=== PATIENT | female | born 1960 | race Caucasian/White ===

== ENCOUNTER 2018-02-09 12:59 | Inpatient (IN) ==
[2018-02-09 13:31] LABS: Bilirubin,Urine Negative (Negative); Blood,Urine Negative (Negative); Color,Urine Yellow (Yellow); Glucose,Urine (UA) Normal (Normal); Ketones,Urine Negative (Negative); Leukocyte Esterase,Urine Small (Negative); Nitrite,Urine Negative (Negative); Protein,Urine 30 mg/dL (Neg-Trace); Specific Gravity,Urine 1.021 (1.010-1.025); Urobilinogen,Urine Normal (Normal)
[2018-02-09 13:36] LABS: Bacteria,Urine Moderate per hpf (None-Few); Hyaline Casts,Urine None Seen per lpf (None-Few); RBC,Urine 0-3 per hpf (0-3); Squamous Epithelial Cell,Urine Many per lpf (None-Few)
[2018-02-09 13:37] LABS: Clarity,Urine Clear (Clear)
[2018-02-09 13:40] LABS: Basophils # 0.1 K/mcL (0.0-0.2); Basophils % 0.8 %; Eosinophils # 0.1 K/mcL (0.0-0.6); Eosinophils % 1.9 %; Hematocrit 46.2 % (35.3-44.9); Hemoglobin 15.4 g/dL (11.5-15.4); Immature Granulocytes % 0.5 % (0-4); Lymphocytes # 2.4 K/mcL (0.6-4.6); Lymphocytes % 33.1 %; Mean Corpuscular HGB Conc 33.3 g/dL (31.6-35.5); Mean Corpuscular Volume 93.1 fL (83.0-100.0); Monocytes # 0.5 K/mcL (0.0-1.3); Monocytes % 6.8 %; Neutrophils # 4.2 K/mcL (1.6-8.9); Platelet Count 337 K/mcL (140-400); Red Blood Count 4.96 M/mcL (3.82-4.97); Red Cell Distribution Width 14.7 % (11.5-14.5); Segmented Neutrophils % 56.9 %
[2018-02-09 13:54] LABS: Amphetamine Screen,Urine Negative ng/mL (Cutoff=1000); Barbiturate Screen,Urine Negative ng/mL (Cutoff=200); Benzodiazepines Screen,Urine Negative ng/mL (Cutoff=200); Cannabinoid Screen,Urine Negative ng/mL (Cutoff = 50); Cocaine Screen,Urine Negative ng/mL (Cutoff= 300); Opiate Screen,Urine Negative ng/mL (Cutoff=300); Phencyclidine Screen,Urine Negative ng/mL (Cutoff=25)
[2018-02-09 14:06] LABS: Acetaminophen < 10 mcg/mL (10-20); BUN/Creatinine Ratio 19 (6-26); Blood Urea Nitrogen 14 mg/dL (6-20); Calcium 9.2 mg/dL (8.6-10.3); Carbon Dioxide 24 mEq/L (23-29); Chloride 103 mEq/L (98-107); Ethanol 327 mg/dL (Less than 10); Glucose 101 mg/dL (70-105); Osmolality,Calculated 293 (280-300); Potassium 3.8 mEq/L (3.5-5.1); Salicylate < 2.5 mg/dL (15.0-30.0); Sodium 141 mEq/L (136-145); eGFR For African Americans > 60 (> 60); eGFR For Non-African Americans > 60 (> 60)
--- NOTE | 2018-02-09 14:15 | Emergency Department Note ---
Disposition Clinical Impression: Suicidal ideation Alcohol intoxication Qualifiers: Complication of substance-induced condition: with unspecified complication Qualified Code(s): F10.929 - Alcohol use, unspecified with intoxication, unspecified Disposition: Admitted As Inpatient Referrals: NONE,PCP [Primary Care Provider] - General Adult HPI - General Chief complaint: ED Psychiatric Symptoms Stated complaint: SI Time Seen by Provider: 02/09/18 13:09 Source: EMS Limitations: no limitations - History of Present Illness HPI Narrative: Ms. Linton is a very pleasant 57-year-old female with a past history of depression, anxiety and alcohol abuse who presents to the [facility] emergency department with a chief complaint of intoxication and suicidal ideations. Her engine testing supervisor reported her abuse this morning after she left a voicemail at [phone] this morning stating that she "did not care anymore and was ready for Jarett ". Patient has a history of chronic alcohol abuse which she drinks 0.5 pint of gin daily. She reports that her father in October and she has been progressively depressed since then. Her psychiatric history involves admission to a psychiatric hospital in [place] roughly 3 years ago. Her relationship with her engine testing supervisor started 1.5 years ago after she drove intoxicated to her engine testing supervisor's house and attempted to leave and was subsequently arrested with a DUI. She goes on to state that she used to use male and prescriptions but had a recent switch and has been out of her medications for roughly 3 weeks. She denies any suicidal ideations this afternoon and did not state a plan. She has not had a firearm at her house. " I just want to go home ". No other complaints at this time. Pain Scale: 0 - Related Data Home Medications Medication Instructions Recorded Confirmed Atomoxetine [Strattera] 40 mg PO DAILY 02/09/18 02/09/18 BuPROPion XL (24 HR) [Wellbutrin 150 mg PO DAILY 02/09/18 02/09/18 XL] FLUoxetine HCl [Prozac] 40 mg PO DAILY 02/09/18 02/09/18 Folic Acid 1 mg PO DAILY 02/09/18 02/09/18 Lisinopril [Zestril] 5 mg PO DAILY 02/09/18 02/09/18 Meloxicam [Mobic] 7.5 mg PO BID PRN 02/09/18 02/09/18 Methotrexate [Otrexup] 15 mg PO QWEEK 02/09/18 02/09/18 Naltrexone HCl 50 mg PO DAILY 02/09/18 02/09/18 Pantoprazole Sodium [Protonix] 40 mg PO DAILY 02/09/18 02/09/18 Quetiapine Fumarate [Seroquel] 200 mg PO BID 02/09/18 02/09/18 Trazodone HCl 150 mg PO HS PRN 02/09/18 02/09/18 hydrOXYzine pamoate [HydrOXYzine 25 - 50 mg PO BID PRN 02/09/18 02/09/18 Pamoate] Allergies Allergy/AdvReac Type Severity Reaction Status Date / Time No Known Allergies Allergy Verified 02/09/18 13:13 Review of Systems: Constitutional: No fever Vision: No blurred vision ENT: No rhinorrhea Respiratory: No cough Allergic: No allergies : No blood in urine GI: No blood in stool Hematologic: No bruising Dermatologic: No skin rash Musculoskeletal: No pain in the extremities Neuro: No numbness of the extremities Past Medical History - Past Medical History Medical history: Reports: other Psychiatric history: Reports: depression - Social History Smoking Status: Current every day smoker Smokeless Tobacco Status: No Alcohol use: Reports: heavy, recent Drug use: Reports: none Physical Exam CONSTITUTIONAL: Alert and oriented X3 that is crying on examination HEAD: Normocephalic; atraumatic. EYES: EOMI, no scleral icterus, no drainage, no conjunctival injection Oropharynx: pink/moist RESP: NRD without use of accessory musculature, CTA b/l with no wheezes/rales/ rhonchi CARD: Regular rhythm, without murmurs, rubs, or gallop ABD: grossly normal, soft, non-tender, no guarding/distention/rigidity SKIN: normal appearance, no pallor/diaphoresis,mottling,jaundice,cyanosis EXT: DP/Rad pulses 2+ and symmetrical; no lateralizing edema; no other lesions seen PSYCH: appears anxious, depressed and crying - General Limitations: no limitations General appearance: alert, in no apparent distress Course Course Narrative: Patient was seen and examined at bedside with engine testing supervisor present at 1400. Patient is noticeably upset and crying on examination. Patient is very upset with her engine testing supervisor for calling the police on her this morning. Initial workup with CBC, UA and drug screen demonstrate normal findings. Alcohol level of 327. At this time we are unable to consult psychiatry to further evaluate suicidal ideations until her alcohol level drops below 80. In the setting of her chronic alcohol abuse, there is a concern that she will go into withdrawal and we will further admit patient to the hospital service and begin CIWA protocol with IVF. Spoke with Hospitalist at [phone] who accepted patient for admission. Vital Signs Temperature 98.4 F 02/09/18 13:01 Pulse Rate 100 02/09/18 13:01 Respiratory Rate 18 02/09/18 13:01 Blood Pressure 151/97 02/09/18 13:01 O2 Sat by Pulse Oximetry 93 02/09/18 13:01 Temperature 98.4 F 02/09/18 13:01 Pulse Rate 100 02/09/18 13:01 Respiratory Rate 18 02/09/18 13:01 Blood Pressure 151/97 02/09/18 13:01 O2 Sat by Pulse Oximetry 93 02/09/18 13:01 Oxygen Delivery Oxygen Delivery Room Air Medical Decision Making - Medical Records Medical records reviewed: Yes I reviewed the patient's medical records. - Lab Data Lab results reviewed: Yes I reviewed the patient's lab results. Result diagrams: 02/09/18 13:27 02/09/18 13:27 Lab Results 02/09/18 02/09/18 02/09/18 Range/Units 13:20 13:25 13:27 WBC 7.3 (4.3-11.1) K/mcL RBC 4.96 (3.82-4.97) M/mcL Hgb 15.4 (11.5-15.4) g/dL Hct 46.2 H (35.3-44.9) % MCV 93.1 (83.0-100.0) fL MCH 31.0 (28.0-33.3) pg MCHC 33.3 (31.6-35.5) g/dL RDW 14.7 H (11.5-14.5) % Plt Count 337 (140-400) K/mcL MPV 8.0 L (9.4-12.4) fL Immature Gran % 0.5 (0-4) % Seg Neutrophils % 56.9 % Lymphocytes % 33.1 % Monocytes % 6.8 % Eosinophils % 1.9 % Basophils % 0.8 % Neutrophils # 4.2 (1.6-8.9) K/mcL Lymphocytes # 2.4 (0.6-4.6) K/mcL Monocytes # 0.5 (0.0-1.3) K/mcL Eosinophils # 0.1 (0.0-0.6) K/mcL Basophils # 0.1 (0.0-0.2) K/mcL Sodium (136-145) mEq/L Potassium (3.5-5.1) mEq/L Chloride (98-107) mEq/L Carbon Dioxide (23-29) mEq/L BUN (6-20) mg/dL Creatinine (0.60-1.20) mg/dL Est GFR ( Amer) (> 60) Est GFR (Non-Af Amer) (> 60) BUN/Creatinine Ratio (6-26) Glucose (70-105) mg/dL Calculated Osmolality (280-300) Calcium (8.6-10.3) mg/dL Urine Color Yellow (Yellow) Urine Clarity Clear (Clear) Urine pH 6.0 (5.0-8.0) pH Units Ur Specific [place] 1.021 (1.010-1.025) Urine Protein 30 H (Neg-Trace) mg/dL Urine Glucose (UA) Normal (Normal) mg/dL Urine Ketones Negative (Negative) mg/dL Urine Blood Negative (Negative) Urine Nitrite Negative (Negative) Urine Bilirubin Negative (Negative) Urine Urobilinogen Normal (Normal) mg/dL Ur Leukocyte Esterase Small H (Negative) Urine Microscopic RBC 0-3 (0-3) per hpf Urine Microscopic WBC 5-15 H (0-3) per hpf Ur Squamous Epith Cells Many H (None-Few) per lpf Urine Bacteria Moderate H (None-Few) per hpf Hyaline Casts None Seen (None-Few) per lpf Salicylates (15.0-30.0) mg/dL Urine Opiates Screen Negative (Tsevhl=847) ng/mL Acetaminophen (10-20) mcg/mL Ur Barbiturates Screen Negative (Ihlanl=293) ng/mL Ur Phencyclidine Scrn Negative (Cutoff=25) ng/mL Ur Amphetamines Screen Negative (Jccmvf=1904) ng/mL U Benzodiazepines Scrn Negative (Syxxhf=519) ng/mL Urine Cocaine Screen Negative (Cutoff= 300) ng/mL U Marijuana (THC) Screen Negative (Cutoff = 50) ng/mL Ethyl Alcohol (Less than 10) mg/dL 02/09/18 Range/Units 13:27 WBC (4.3-11.1) K/mcL RBC (3.82-4.97) M/mcL Hgb (11.5-15.4) g/dL Hct (35.3-44.9) % MCV (83.0-100.0) fL MCH (28.0-33.3) pg MCHC (31.6-35.5) g/dL RDW (11.5-14.5) % Plt Count (140-400) K/mcL MPV (9.4-12.4) fL Immature Gran % (0-4) % Seg Neutrophils % % Lymphocytes % % Monocytes % % Eosinophils % % Basophils % % Neutrophils # (1.6-8.9) K/mcL Lymphocytes # (0.6-4.6) K/mcL Monocytes # (0.0-1.3) K/mcL Eosinophils # (0.0-0.6) K/mcL Basophils # (0.0-0.2) K/mcL Sodium 141 (136-145) mEq/L Potassium 3.8 (3.5-5.1) mEq/L Chloride 103 (98-107) mEq/L Carbon Dioxide 24 (23-29) mEq/L BUN 14 (6-20) mg/dL Creatinine 0.73 (0.60-1.20) mg/dL Est GFR ( Amer) > 60 (> 60) Est GFR (Non-Af Amer) > 60 (> 60) BUN/Creatinine Ratio 19 (6-26) Glucose 101 (70-105) mg/dL Calculated Osmolality 293 (280-300) Calcium 9.2 (8.6-10.3) mg/dL Urine Color (Yellow) Urine Clarity (Clear) Urine pH (5.0-8.0) pH Units Ur Specific [place] (1.010-1.025) Urine Protein (Neg-Trace) mg/dL Urine Glucose (UA) (Normal) mg/dL Urine Ketones (Negative) mg/dL Urine Blood (Negative) Urine Nitrite (Negative) Urine Bilirubin (Negative) Urine Urobilinogen (Normal) mg/dL Ur Leukocyte Esterase (Negative) Urine Microscopic RBC (0-3) per hpf Urine Microscopic WBC (0-3) per hpf Ur Squamous Epith Cells (None-Few) per lpf Urine Bacteria (None-Few) per hpf Hyaline Casts (None-Few) per lpf Salicylates < 2.5 L (15.0-30.0) mg/dL Urine Opiates Screen (Ngbifk=581) ng/mL Acetaminophen < 10 L (10-20) mcg/mL Ur Barbiturates Screen (Rhppju=243) ng/mL Ur Phencyclidine Scrn (Cutoff=25) ng/mL Ur Amphetamines Screen (Texcqx=5752) ng/mL U Benzodiazepines Scrn (Pybity=588) ng/mL Urine Cocaine Screen (Cutoff= 300) ng/mL U Marijuana (THC) Screen (Cutoff = 50) ng/mL Ethyl Alcohol 327 H (Less than 10) mg/dL - Radiology Data Radiology results reviewed: Yes I reviewed the patient's radiology results.
[2018-02-09] MEDS ORDERED: Folic Acid 1 MG in D5% in Water 50 ML IVPB ONE (14:17)
[2018-02-09] MEDS ORDERED: *HR* LORazepam 2 MG/ML VIAL IM ONE (14:17)
[2018-02-09] MEDS ORDERED: Thiamine (B-1) 200 MG/2 ML VIAL IM ONE (14:17)
[2018-02-09] MEDS ORDERED: *HR* LORazepam 2 MG/ML VIAL IVP PRN ×2 (14:18→16:05)
--- NOTE | 2018-02-09 14:25 | Emergency Department Note ---
Disposition Clinical Impression: Suicidal ideation Alcohol intoxication Qualifiers: Complication of substance-induced condition: with unspecified complication Qualified Code(s): F10.929 - Alcohol use, unspecified with intoxication, unspecified Disposition: Admitted As Inpatient Referrals: NONE,PCP [Primary Care Provider] - Forms: ED Satisfaction Letter General Adult HPI - General Chief complaint: ED Psychiatric Symptoms Stated complaint: SI Time Seen by Provider: 02/09/18 13:09 Source: EMS Limitations: no limitations - History of Present Illness Pain Scale: 0 - Related Data Allergies Allergy/AdvReac Type Severity Reaction Status Date / Time No Known Allergies Allergy Verified 02/09/18 13:13 Past Medical History - Past Medical History Medical history: Reports: other Psychiatric history: Reports: depression - Social History Smoking Status: Current every day smoker Smokeless Tobacco Status: No Alcohol use: Reports: heavy, recent Drug use: Reports: none Physical Exam - General Limitations: no limitations General appearance: alert, in no apparent distress Course Vital Signs Temperature 98.4 F 02/09/18 13:01 Pulse Rate 100 02/09/18 13:01 Respiratory Rate 18 02/09/18 13:01 Blood Pressure 151/97 02/09/18 13:01 O2 Sat by Pulse Oximetry 93 02/09/18 13:01 Temperature 98.4 F 02/09/18 13:01 Pulse Rate 100 02/09/18 13:01 Respiratory Rate 18 02/09/18 13:01 Blood Pressure 151/97 02/09/18 13:01 O2 Sat by Pulse Oximetry 93 02/09/18 13:01 Oxygen Delivery Oxygen Delivery Room Air Medical Decision Making - Lab Data Result diagrams: 02/09/18 13:27 02/09/18 13:27 Lab Results 02/09/18 02/09/18 02/09/18 Range/Units 13:20 13:25 13:27 WBC 7.3 (4.3-11.1) K/mcL RBC 4.96 (3.82-4.97) M/mcL Hgb 15.4 (11.5-15.4) g/dL Hct 46.2 H (35.3-44.9) % MCV 93.1 (83.0-100.0) fL MCH 31.0 (28.0-33.3) pg MCHC 33.3 (31.6-35.5) g/dL RDW 14.7 H (11.5-14.5) % Plt Count 337 (140-400) K/mcL MPV 8.0 L (9.4-12.4) fL Immature Gran % 0.5 (0-4) % Seg Neutrophils % 56.9 % Lymphocytes % 33.1 % Monocytes % 6.8 % Eosinophils % 1.9 % Basophils % 0.8 % Neutrophils # 4.2 (1.6-8.9) K/mcL Lymphocytes # 2.4 (0.6-4.6) K/mcL Monocytes # 0.5 (0.0-1.3) K/mcL Eosinophils # 0.1 (0.0-0.6) K/mcL Basophils # 0.1 (0.0-0.2) K/mcL Sodium (136-145) mEq/L Potassium (3.5-5.1) mEq/L Chloride (98-107) mEq/L Carbon Dioxide (23-29) mEq/L BUN (6-20) mg/dL Creatinine (0.60-1.20) mg/dL Est GFR ( Amer) (> 60) Est GFR (Non-Af Amer) (> 60) BUN/Creatinine Ratio (6-26) Glucose (70-105) mg/dL Calculated Osmolality (280-300) Calcium (8.6-10.3) mg/dL Urine Color Yellow (Yellow) Urine Clarity Clear (Clear) Urine pH 6.0 (5.0-8.0) pH Units Ur Specific Wallace 1.021 (1.010-1.025) Urine Protein 30 H (Neg-Trace) mg/dL Urine Glucose (UA) Normal (Normal) mg/dL Urine Ketones Negative (Negative) mg/dL Urine Blood Negative (Negative) Urine Nitrite Negative (Negative) Urine Bilirubin Negative (Negative) Urine Urobilinogen Normal (Normal) mg/dL Ur Leukocyte Esterase Small H (Negative) Urine Microscopic RBC 0-3 (0-3) per hpf Urine Microscopic WBC 5-15 H (0-3) per hpf Ur Squamous Epith Cells Many H (None-Few) per lpf Urine Bacteria Moderate H (None-Few) per hpf Hyaline Casts None Seen (None-Few) per lpf Salicylates (15.0-30.0) mg/dL Urine Opiates Screen Negative (Eeglwm=970) ng/mL Acetaminophen (10-20) mcg/mL Ur Barbiturates Screen Negative (Lcghrx=853) ng/mL Ur Phencyclidine Scrn Negative (Cutoff=25) ng/mL Ur Amphetamines Screen Negative (Wfhfur=6170) ng/mL U Benzodiazepines Scrn Negative (Ewxnak=509) ng/mL Urine Cocaine Screen Negative (Cutoff= 300) ng/mL U Marijuana (THC) Screen Negative (Cutoff = 50) ng/mL Ethyl Alcohol (Less than 10) mg/dL 02/09/18 Range/Units 13:27 WBC (4.3-11.1) K/mcL RBC (3.82-4.97) M/mcL Hgb (11.5-15.4) g/dL Hct (35.3-44.9) % MCV (83.0-100.0) fL MCH (28.0-33.3) pg MCHC (31.6-35.5) g/dL RDW (11.5-14.5) % Plt Count (140-400) K/mcL MPV (9.4-12.4) fL Immature Gran % (0-4) % Seg Neutrophils % % Lymphocytes % % Monocytes % % Eosinophils % % Basophils % % Neutrophils # (1.6-8.9) K/mcL Lymphocytes # (0.6-4.6) K/mcL Monocytes # (0.0-1.3) K/mcL Eosinophils # (0.0-0.6) K/mcL Basophils # (0.0-0.2) K/mcL Sodium 141 (136-145) mEq/L Potassium 3.8 (3.5-5.1) mEq/L Chloride 103 (98-107) mEq/L Carbon Dioxide 24 (23-29) mEq/L BUN 14 (6-20) mg/dL Creatinine 0.73 (0.60-1.20) mg/dL Est GFR ( Amer) > 60 (> 60) Est GFR (Non-Af Amer) > 60 (> 60) BUN/Creatinine Ratio 19 (6-26) Glucose 101 (70-105) mg/dL Calculated Osmolality 293 (280-300) Calcium 9.2 (8.6-10.3) mg/dL Urine Color (Yellow) Urine Clarity (Clear) Urine pH (5.0-8.0) pH Units Ur Specific Wallace (1.010-1.025) Urine Protein (Neg-Trace) mg/dL Urine Glucose (UA) (Normal) mg/dL Urine Ketones (Negative) mg/dL Urine Blood (Negative) Urine Nitrite (Negative) Urine Bilirubin (Negative) Urine Urobilinogen (Normal) mg/dL Ur Leukocyte Esterase (Negative) Urine Microscopic RBC (0-3) per hpf Urine Microscopic WBC (0-3) per hpf Ur Squamous Epith Cells (None-Few) per lpf Urine Bacteria (None-Few) per hpf Hyaline Casts (None-Few) per lpf Salicylates < 2.5 L (15.0-30.0) mg/dL Urine Opiates Screen (Nahtcw=945) ng/mL Acetaminophen < 10 L (10-20) mcg/mL Ur Barbiturates Screen (Rmjenw=901) ng/mL Ur Phencyclidine Scrn (Cutoff=25) ng/mL Ur Amphetamines Screen (Jxjvbj=7582) ng/mL U Benzodiazepines Scrn (Gbchry=707) ng/mL Urine Cocaine Screen (Cutoff= 300) ng/mL U Marijuana (THC) Screen (Cutoff = 50) ng/mL Ethyl Alcohol 327 H (Less than 10) mg/dL Attestation Statement - Attestation Attestation: I examined this patient and my medical decision-making was reviewed with the Resident Physician. I agree with the documented findings, disposition and treatment plan as described except to the extent set forth below. 57 cruz rahman theodorewilliam prsentes ot th eED with hsitory of depression and SI without plan. Radha drinks about 1 pint of vodka a day since her father in Oct. Radha tstates that she is out of depresion medications and she is tearful in the room. Sukumar is shaknig at bedside as well. we will do medical clearance. Unfortunately we cannot medically clear at this time because of ETOH level of 327 and will need medical admission with inaptient pysch clcearaence. She has been placed on a 72 hour pysch hold. [facility] protocol started
[2018-02-09] MEDS ORDERED: Naloxone 0.4 MG/ML INJ IVP PRN (15:58)
[2018-02-09] MEDS ORDERED: *HR* Methotrexate 2.5 MG TABLET PO SCH (16:15)
--- NOTE | 2018-02-09 16:25 | Internal Med History&Physical ---
Date of Encounter: 02/09/18 Time of Encounter: 14:30 Internal Medicine - H&P: HPI Chief complaint: Alcohol intoxication Admitted From: Emergency Dept Plans for Post Hospital Care: Home History of present illness: Ms. Linton is a 57 year old female w/PMH of alcohol abuse, tobacco abuse, chronic depression and anxiety, and chronic back pain presents from the ED w/ chief complaint of alcohol intoxication. Patient reports she drank half a fifth of gin last night and finished the remainder this morning. Called her home health care case manager to say "she did not care anymore and was ready for Jarett". Patient denies any history of suicidal ideations or attempts. Reports psychiatric hospitalization in [place] 3 years ago for nervous breakdown. Reports father in October and she has been spiraling ever since. States her medications for depression and anxiety are not working. Reports unsteadiness on her feet but denies recent illness, fever, chills, nausea, vomiting, chest pain , SOB, cough, chest congestion, headache, vision changes, unusual bleeding, abdominal pain, diarrhea, constipation, pre-syncope, or syncope. Past Med Surg Social Fam HX - Past Medical History Source: patient, old records reviewed Medical history: other (Alcoholism) Psychiatric history: anxiety, depression, previous psychiatric hospitalization ( 3 years ago in [place] for nervous breakdown) - Social History Smoking Status: Current every day smoker Packs per day: 1/2 PPD Smokeless Tobacco Status: No Alcohol use: heavy, recent Drug use: none Current living situation: Home Activity Level: Independent ambulation Recent Out of Country Travel Within the Last 8 Weeks: No Exposure or Possible Exposure to Illness During Travel: No - Family History Mother Race: Family Member Ethnicity: Non- Living Status: Still Living Son Race: Family Member Ethnicity: Non- Living Status: Still Living Hx Family Psychosocial Disorders: Yes (Drug abuse) Internal Medicine - H&P: Meds Atomoxetine [Strattera] 40 mg PO DAILY 02/09/18 [History] BuPROPion XL (24 HR) [Wellbutrin XL] 150 mg PO DAILY 02/09/18 [History] FLUoxetine HCl [Prozac] 40 mg PO DAILY 02/09/18 [History] Folic Acid 1 mg PO DAILY 02/09/18 [History] Lisinopril [Zestril] 5 mg PO DAILY 02/09/18 [History] Meloxicam [Mobic] 7.5 mg PO BID PRN 02/09/18 [History] Methotrexate [Otrexup] 15 mg PO QWEEK 02/09/18 [History] Naltrexone HCl 50 mg PO DAILY 02/09/18 [History] Pantoprazole Sodium [Protonix] 40 mg PO DAILY 02/09/18 [History] Quetiapine Fumarate [Seroquel] 200 mg PO BID 02/09/18 [History] Trazodone HCl 150 mg PO HS PRN 02/09/18 [History] hydrOXYzine pamoate [HydrOXYzine Pamoate] 25 - 50 mg PO BID PRN 02/09/18 [ History] 3 Allergy/AdvReac Type Severity Reaction Status Date / Time No Known Allergies Allergy Verified 02/09/18 13:13 All Systems PM: A 10-system review of systems was performed and is negative for pertinent findings except as documented above in the HPI. - Constitutional Constitutional: as per HPI, other (Unsteadiness on feet), no chills, no fever(s) , no night sweats - EENT Eyes: no change in vision, no discharge, no pain, no photophobia Ears: no ear discharge, no ear pain, no tinnitus Nose, mouth and throat: no dysphagia, no nasal discharge, no neck pain, no sore throat - Breasts Breasts: as per HPI - Cardiovascular Cardiovascular ROS IM: no chest pain, no diaphoresis, no dyspnea, no lightheadedness, no palpitations, no syncope - Respiratory Respiratory: no cough, no dyspnea, no wheezing, no excessive phlegm production - Gastrointestinal Gastrointestinal: no abdominal pain, no diarrhea, no hematemesis, no hematochezia, no melena, no nausea, no vomiting - Genitourinary Genitourinary: no change in urinary stream, no dysuria, no flank pain, no hematuria Menstruation: as per HPI - Musculoskeletal Musculoskeletal ROS IM: as per HPI, back pain, no numbness, no tingling - Integumentary Integumentary IM: no rash, no unusual bruising - Neurological Neurological ROS: as per HPI, disequilibrium, no confusion, no convulsions, no focal weakness, no numbness, no tingling, no tremor(s) - Psychiatric Psychiatric: as per HPI, anxiety, depression - Endocrine Endocrine IM: as per HPI - Hematologic/Lymphatic Hematologic/Lymphatic: no easy bruising - Allergic/Immunologic Allergic/Immunologic: as per HPI - Constitutional Vitals: Temp Pulse Resp BP Pulse Ox 97.7 F 100 18 140/72 93 02/09/18 15:10 02/09/18 13:01 02/09/18 15:10 02/09/18 15:10 02/09/18 13:01 General appearance: Present: cooperative, mild distress (Emotional distress d/t anxiety), A&O X 3, obese, answers questions appropriately - Head Head exam: Present: atraumatic, normocephalic - Eye Eye exam: Present: PERRL, conjuntiva pink, sclera anicteric Pupils: Present: PERRL - ENT ENT exam: Present: normal exam - Neck Neck exam general surgery: Present: supple, trachea midline. Absent: lymphadenopathy - Respiratory Respiratory exam: Present: CTAB. Absent: accessory muscle use, rales, rhonchi, wheezes - Cardiovascular Cardiovascular exam: Present: +S1, +S2, tachycardia. Absent: diastolic murmur, gallop, rubs, systolic murmur - GI/Abdominal GI/Abdominal exam: Present: normal bowel sounds, soft, no peritoneal signs. Absent: distended, tenderness - Rectal Rectal exam: Present: deferred - Additional comments: exam deferred. - Extremities Exam Extremities exam: Present: warm, radial pulses palpable and symmetrical. Absent : calf tenderness, cyanotic, pedal edema - Back Exam Back exam: Present: normal inspection - Neurological Exam Neurological exam: Present: CN II-XII intact, oriented X3, no focal deficits. Absent: pronater drift, facial droop, speech deficit - Psychiatric Psychiatric exam: Present: anxious - Skin Skin exam: Present: dry, intact Internal Med - H&P Results - Labs CBC & Chem 7: 02/09/18 13:27 02/09/18 13:27 - Assessment and plan (1) Alcohol intoxication Current Visit: Yes Status: Acute Assessment and plan: Acute on chronic alcohol intoxication. Pt. reports drinking one half fifth of gin last night and remainder this morning. Pts. Research And Development Technician reports pt. called her this morning and left voicemail message stating "she did not care anymore and was ready for Jarett". Research And Development Technician called pts. returning officer, police, and senior accounts payable specialist who went to pts. house. Pt. denies any hx of suicidal ideations, homicidal ideations, suicide attempts, or previous hospitalizations for suicide-related issues. Pt. does report psychiatric hospitalization 3 years ago in [place] for nervous breakdown. EtOH 327 on admission. CIWA scale protocol ordered. Ativan 1 mg IVP Q1HR PRN and 2 mg IVP Q4HR PRN for agitation/withdrawal. Folic acid and thiamine IVPB ordered. Hepatic panel ordered. Sitter ordered. Psychiatric consult ordered and I appreciate the consult. SW consult ordered for rehabilitation placement. Pt. and f/u labs to be monitored closely. Pt. discussed w/Dr. Crawford who agrees w/plan of care. Pt. is high risk for further morbidity d/t high risk of EtOH withdrawal and current EtOH of 327, current tachycardia, hx of uncontrolled anxiety and depression, hx of nervous breakdown , and hx of alcoholism. Inpatient. Qualifiers: Complication of substance-induced condition: with unspecified complication Qualified Code(s): F10.929 - Alcohol use, unspecified with intoxication, unspecified (2) Chronic back pain greater than 3 months duration Current Visit: Yes Status: Chronic Assessment and plan: Hx of chronic back pain d/t degenerative disc disease as well as fibromyalgia. Will continue pts. Meloxicam and methotrexate. (3) Anxiety and depression Current Visit: Yes Status: Chronic Assessment and plan: Hx of chronic anxiety and depression. States that her medications are not working for her. Reports 7 years ago and her father in October 2017. Reports son and new granddaughter that she didn't know about. Reports familial strains. States that she is followed at [facility] in [place] for her psychiatric needs. Will continue pts. current medications. SW consult ordered to address rehabilitation needs. (4) Tobacco abuse Current Visit: Yes Status: Chronic Assessment and plan: Hx of chronic tobacco abuse. Reports smoking up to 1/2 PPD when she drinks. Has no interest in quitting now d/t stressors in her life. (5) DVT prophylaxis Current Visit: Yes Status: Acute Assessment and plan: Lovenox 40 mg SQ 0600 daily for DVT prophylaxis. Monitor pt. for signs of bleeding. - Time Spent With Patient Total time spent is greater than 50% in coordination of care (as documented) at patient's floor/unit and/or counseling patient: 25 - 35 minutes
[2018-02-09] MEDS: Thiamine (B-1) 100 MG, Folic Acid 1 MG, MVI, adult with vitamin K 10 ML in 0.9 % Sodi... IVPB SCH (16:33)
[2018-02-09] MEDS: 0.9 % Sodium Chloride 1,000 ML IVC SCH (17:33)
[2018-02-09] MEDS ORDERED: Pantoprazole 40 MG VIAL IVP SCH (18:30)
[2018-02-09] MEDS: traZODone 50 MG TABLET PO PRN (20:30)
[2018-02-10] MEDS: 0.9 % Sodium Chloride 1,000 ML IVC SCH (03:16)
[2018-02-10] MEDS: *HR* Enoxaparin 40 MG/0.4 ML SYRINGE SQ SCH (05:18)
[2018-02-10 06:32] LABS: Basophils % 0.3 %; Eosinophils # 0.1 K/mcL (0.0-0.6); Eosinophils % 1.5 %; Hematocrit 34.7 % (35.3-44.9); Immature Granulocytes % 0.3 % (0-4); Lymphocytes # 1.9 K/mcL (0.6-4.6); Lymphocytes % 26.6 %; Mean Corpuscular HGB Conc 33.4 g/dL (31.6-35.5); Mean Corpuscular Hemoglobin 30.9 pg (28.0-33.3); Mean Corpuscular Volume 92.3 fL (83.0-100.0); Mean Platelet Volume 8.3 fL (9.4-12.4); Monocytes # 0.8 K/mcL (0.0-1.3); Monocytes % 11.1 %; Neutrophils # 4.3 K/mcL (1.6-8.9); Platelet Count 212 K/mcL (140-400); Red Blood Count 3.76 M/mcL (3.82-4.97); Red Cell Distribution Width 14.6 % (11.5-14.5); Segmented Neutrophils % 60.2 %
[2018-02-10 06:42] LABS: Hemoglobin 11.6 g/dL (11.5-15.4)
[2018-02-10 06:43] LABS: Prothrombin Time 10.6 Seconds (9.4-12.1)
[2018-02-10 06:46] LABS: Activated Partial Thrombo Time 29.3 Seconds (26.0-36.0)
[2018-02-10 07:22] LABS: Alanine Aminotransferase 23 Units/L (7-52); Albumin 3.6 g/dL (3.5-5.7); Albumin/Globulin Ratio 1.8 (1.1-2.2); Alkaline Phosphatase 51 Units/L (34-104); Aspartate Amino Transferase 26 Units/L (13-39); BUN/Creatinine Ratio 27 (6-26); Bilirubin,Direct 0.2 mg/dL (0.0-0.2); Bilirubin,Indirect 0.4 mg/dL (0.0-1.2); Bilirubin,Total 0.6 mg/dL (0.3-1.0); Blood Urea Nitrogen 16 mg/dL (6-20); Calcium 8.7 mg/dL (8.6-10.3); Carbon Dioxide 26 mEq/L (23-29); Chloride 105 mEq/L (98-107); Cholesterol 222 mg/dL (< 200); Glucose 97 mg/dL (70-105); HDL Cholesterol 74 mg/dL (40-59); LDL Cholesterol,Calculated 135 mg/dL (0-99); Magnesium 1.7 mg/dL (1.6-2.6); Osmolality,Calculated 289 (280-300); Phosphorous 3.5 mg/dL (2.7-4.5); Potassium 3.7 mEq/L (3.5-5.1); Sodium 139 mEq/L (136-145); Total Protein 5.6 g/dL (6.4-8.9); Triglycerides 65 mg/dL (< 150); eGFR For African Americans > 60 (> 60); eGFR For Non-African Americans > 60 (> 60)
[2018-02-10] MEDS ORDERED: *HR* LORazepam 2 MG/ML VIAL IVP PRN (07:24)
[2018-02-10] MEDS: FLUoxetine 20 MG CAPSULE PO SCH (07:56)
[2018-02-10] MEDS: Folic Acid 1 MG TABLET PO SCH (07:56)
[2018-02-10] MEDS: BuPROPion XL (24 HR) 150 MG TABLET PO SCH (07:56)
[2018-02-10] MEDS: Acetaminophen 325 MG TABLET PO PRN ×2 (08:05→16:46)
[2018-02-10] MEDS ORDERED: NALTREXONE HCL 50 MG TABLET PO SCH (09:00)
[2018-02-10 11:50] LABS: Estimated Average Glucose 114 mg/dl; Hemoglobin A1C 5.6 %
--- NOTE | 2018-02-10 14:07 | Internal Med Progress Note ---
Date of Encounter: 02/10/18 Time of Encounter: 12:58 - Assessment and plan (1) Alcohol intoxication Current Visit: Yes Status: Acute Assessment and plan: Pt denies alcohol abuse history will continue CIWA monitoring at this time folate/thiamine supplementation psych evaluation requested tentative d/c in am if cleared by psych Qualifiers: Complication of substance-induced condition: with unspecified complication Qualified Code(s): F10.929 - Alcohol use, unspecified with intoxication, unspecified (2) Chronic back pain greater than 3 months duration Current Visit: Yes Status: Chronic Assessment and plan: continue home meds (3) Anxiety and depression Current Visit: Yes Status: Chronic Assessment and plan: awaiting psych evaluation (4) DVT prophylaxis Current Visit: Yes Status: Acute Assessment and plan: lovenox SQ (5) Tobacco abuse Current Visit: Yes Status: Chronic (6) Obesity (BMI 30-39.9) Current Visit: Yes Status: Chronic - Time Spent With Patient Total time spent is greater than 50% in coordination of care (as documented) at patient's floor/unit and/or counseling patient: - Subjective Interval history: Pt seen and examined with sitter present at bedside. Pt does not recall the preceding events prior to her hospitalization and denies calling her clinical case manager. Pt denies any suicidal ideation however does admit to being depressed. States she has been out of her depression and anxiety medication for a month and has not been able to get them due to the mail order issues. Denies being an every day drinker, states she has only drank four times since october including last night Psych evaluation requested - Constitutional Vitals: Temp Pulse Resp BP Pulse Ox 98 F 96 16 129/80 94 02/10/18 11:16 02/10/18 11:16 02/10/18 11:16 02/10/18 11:16 02/10/18 11:16 General appearance: Present: cooperative, A&O X 3, no acute distress, obese, answers questions appropriately - Head Head exam: Present: atraumatic, normocephalic - Eye Eye exam: Present: conjuntiva pink, sclera anicteric - Respiratory Respiratory exam: Present: CTAB. Absent: accessory muscle use, rales, rhonchi, wheezes - Cardiovascular Cardiovascular exam: Present: RRR, +S1, +S2. Absent: diastolic murmur, gallop, rubs, systolic murmur - GI/Abdominal GI/Abdominal exam: Present: normal bowel sounds, soft, no peritoneal signs. Absent: distended, tenderness - Extremities Exam Extremities exam: Present: warm, radial pulses palpable and symmetrical. Absent : calf tenderness, pedal edema - Neurological Exam Neurological exam: Present: oriented X3 Internal Medicine: Result - Labs CBC & Chem 7: 02/10/18 06:17 02/10/18 06:17 Labs: Short CBC 02/10/18 Range/Units 06:17 WBC 7.2 (4.3-11.1) K/mcL Hgb 11.6 D (11.5-15.4) g/dL Hct 34.7 L (35.3-44.9) % Plt Count 212 (140-400) K/mcL Neutrophils # 4.3 (1.6-8.9) K/mcL BMP 02/10/18 06:17 Sodium 139 Potassium 3.7 Chloride 105 Carbon Dioxide 26 BUN 16 Creatinine 0.60 Glucose 97 Calcium 8.7 Liver Function 02/10/18 Range/Units 06:17 Total Bilirubin 0.6 (0.3-1.0) mg/dL Direct Bilirubin 0.2 (0.0-0.2) mg/dL AST 26 (13-39) Units/L ALT 23 (7-52) Units/L Alkaline Phosphatase 51 (34-104) Units/L Albumin 3.6 (3.5-5.7) g/dL - ABG Interpretation ABG results: PT/INR, D-dimer PT 10.6 Seconds (9.4-12.1) 02/10/18 06:17 Consult Discharge Plan - Plan Referrals: NONE,PCP [Primary Care Provider] -
--- NOTE | 2018-02-10 14:46 | Consult Note ---
Date of Encounter: 02/10/18 Time of Encounter: 13:55 Assessment & Recommendation (1) Alcohol intoxication Current visit: Yes Status: Acute Assessment & Recommendation: Refer patient to alcohol rehabilitation program. Patient was advised not to consume alcohol. Qualifiers: Complication of substance-induced condition: with delirium Qualified Code(s ): F10.921 - Alcohol use, unspecified with intoxication delirium (2) Suicidal ideation Current visit: Yes Status: Acute Assessment & Recommendation: Patient is not suicidal, need to follow-up with outpatient mental health services in 7-10 days. She will continue her medication. There are no criteria for inpatient psychiatric hospitalization at this time. History of Present Illness Patient: new to practice Requesting Physician: Svetlana Orlando MD Reason for consult: Alcohol intoxication and suicidal ideation History of present illness: Ms. Linton is a 57 year old female admitted to the hospital for evaluation treatment of alcohol intoxication was a blood alcohol level was 327, her human resources recruiter from [facility] services indicated that patient will Weld thoughts about giving up life or passive suicidal ideation. Patient recently recently lost her father in October of last year and she increased her alcohol consumption. She has lifelong history of alcohol dependence and abuse, had a history of rehabilitation for 5 months and she has been followed at [facility] for treatment of mental health and substance abuse she has been on medication including naltrexone individual in addition to Seroquel fluoxetine and Strattera. CC: Svetlana Orlando MD Past Med Surg Social Fam HX - Past Medical History Medical history: other (Alcoholism) - Past Psychiatric History Psychiatric history: Reports: depression, previous psychiatric hospitalization. Denies: prior suicide attempt - Social History Smoking Status: Current every day smoker Smokeless Tobacco Status: No Alcohol use: heavy, recent Drug use: none - Family History Mother Race: Family Member Ethnicity: Non- Living Status: Still Living Son Race: Family Member Ethnicity: Non- Living Status: Still Living Hx Family Psychosocial Disorders: Yes (Drug abuse) Medications & Allergies Atomoxetine [Strattera] 40 mg PO DAILY 02/09/18 [History] BuPROPion XL (24 HR) [Wellbutrin XL] 150 mg PO DAILY 02/09/18 [History] FLUoxetine HCl [Prozac] 40 mg PO DAILY 02/09/18 [History] Folic Acid 1 mg PO DAILY 02/09/18 [History] Lisinopril [Zestril] 5 mg PO DAILY 02/09/18 [History] Meloxicam [Mobic] 7.5 mg PO BID PRN 02/09/18 [History] Methotrexate [Otrexup] 15 mg PO QWEEK 02/09/18 [History] Naltrexone HCl 50 mg PO DAILY 02/09/18 [History] Pantoprazole Sodium [Protonix] 40 mg PO DAILY 02/09/18 [History] Quetiapine Fumarate [Seroquel] 200 mg PO BID 02/09/18 [History] Trazodone HCl 150 mg PO HS PRN 02/09/18 [History] hydrOXYzine pamoate [HydrOXYzine Pamoate] 25 - 50 mg PO BID PRN 02/09/18 [ History] 3 Allergy/AdvReac Type Severity Reaction Status Date / Time No Known Allergies Allergy Verified 02/09/18 13:13 Review of Systems Psychiatric: Reports: depression, suicidal ideation, other (Alcohol intoxication ) Psychiatry Exam - Constitutional Vitals: Temp Pulse Resp BP Pulse Ox 98 F 96 16 129/80 94 02/10/18 11:16 02/10/18 11:16 02/10/18 11:16 02/10/18 11:16 02/10/18 11:16 General appearance: age & developmentally appropriate, well-groomed, well- nourished, obese - Musculoskeletal Gait: normal Station: relaxed Strength & Tone: normal for patient - Psychiatric Patient Orientation: Yes Person, Yes Time, Yes Place Level of alertness: Alert Behavior: calm, cooperative Psychomotor activity: Normal Eye Contact: Maintains Eye Contact Mood Description: Euthymic/stable Affect description: congruent with mood, full range Speech Volume: Normal Speech pattern: normal rate, normal rhythm, normal tone, fluent, spontaneous Language & Vocabulary: consistent with education Thought Process: Linear, Goal Oriented Thought Content: No Suicidal ideation, No Homicidal ideation, No Overt delusions Perceptual Disturbances: No Auditory hallucinations, No Visual hallucinations Attention Span Ability: Capable of Focused Attention Memory Description: Grossly Intact Patient Reliability: Reliable Historian Fund of knowledge: Yes abstraction ability, Yes aware of current events Intelligence Estimate: Average Judgment: Limited Insight: Partial Results - Drug Levels and Toxicology Drug Levels and Toxicology: Drug Levels and Toxicity 02/09/18 02/10/18 16:24 06:17 Ethyl Alcohol 226 H < 10 - Labs Labs: Laboratory Last Values WBC 7.2 K/mcL (4.3-11.1) 02/10/18 06:17 RBC 3.76 M/mcL (3.82-4.97) L 02/10/18 06:17 Hgb 11.6 g/dL (11.5-15.4) D 02/10/18 06:17 Hct 34.7 % (35.3-44.9) L 02/10/18 06:17 MCV 92.3 fL (83.0-100.0) 02/10/18 06:17 MCH 30.9 pg (28.0-33.3) 02/10/18 06:17 MCHC 33.4 g/dL (31.6-35.5) 02/10/18 06:17 RDW 14.6 % (11.5-14.5) H 02/10/18 06:17 Plt Count 212 K/mcL (140-400) 02/10/18 06:17 MPV 8.3 fL (9.4-12.4) L 02/10/18 06:17 Immature Gran % 0.3 % (0-4) 02/10/18 06:17 Seg Neutrophils % 60.2 % 02/10/18 06:17 Lymphocytes % 26.6 % 02/10/18 06:17 Monocytes % 11.1 % 02/10/18 06:17 Eosinophils % 1.5 % 02/10/18 06:17 Basophils % 0.3 % 02/10/18 06:17 Neutrophils # 4.3 K/mcL (1.6-8.9) 02/10/18 06:17 Lymphocytes # 1.9 K/mcL (0.6-4.6) 02/10/18 06:17 Monocytes # 0.8 K/mcL (0.0-1.3) 02/10/18 06:17 Eosinophils # 0.1 K/mcL (0.0-0.6) 02/10/18 06:17 Basophils # 0.0 K/mcL (0.0-0.2) 02/10/18 06:17 PT 10.6 Seconds (9.4-12.1) 02/10/18 06:17 INR 1.0 02/10/18 06:17 APTT 29.3 Seconds (26.0-36.0) 02/10/18 06:17 Sodium 139 mEq/L (136-145) 02/10/18 06:17 Potassium 3.7 mEq/L (3.5-5.1) 02/10/18 06:17 Chloride 105 mEq/L (98-107) 02/10/18 06:17 Carbon Dioxide 26 mEq/L (23-29) 02/10/18 06:17 BUN 16 mg/dL (6-20) 02/10/18 06:17 Creatinine 0.60 mg/dL (0.60-1.20) 02/10/18 06:17 Est GFR ( Amer) > 60 (> 60) 02/10/18 06:17 Est GFR (Non-Af Amer) > 60 (> 60) 02/10/18 06:17 BUN/Creatinine Ratio 27 (6-26) H 02/10/18 06:17 Glucose 97 mg/dL (70-105) 02/10/18 06:17 POC Glucose 92 mg/dL (70-99) 02/10/18 07:32 Est Mean Plasma Glucose 114 mg/dl 02/10/18 06:17 Hemoglobin A1c 5.6 % (-5.6) 02/10/18 06:17 Calculated Osmolality 289 (280-300) 02/10/18 06:17 Calcium 8.7 mg/dL (8.6-10.3) 02/10/18 06:17 Phosphorus 3.5 mg/dL (2.7-4.5) 02/10/18 06:17 Magnesium 1.7 mg/dL (1.6-2.6) 02/10/18 06:17 Total Bilirubin 0.6 mg/dL (0.3-1.0) 02/10/18 06:17 Direct Bilirubin 0.2 mg/dL (0.0-0.2) 02/10/18 06:17 Indirect Bilirubin 0.4 mg/dL (0.0-1.2) 02/10/18 06:17 AST 26 Units/L (13-39) 02/10/18 06:17 ALT 23 Units/L (7-52) 02/10/18 06:17 Alkaline Phosphatase 51 Units/L (34-104) 02/10/18 06:17 Serum Total Protein 5.6 g/dL (6.4-8.9) L 02/10/18 06:17 Albumin 3.6 g/dL (3.5-5.7) 02/10/18 06:17 Globulin 2.0 g/dL (2.4-3.5) L 02/10/18 06:17 Albumin/Globulin Ratio 1.8 (1.1-2.2) 02/10/18 06:17 Triglycerides 65 mg/dL (< 150) 02/10/18 06:17 Cholesterol 222 mg/dL (< 200) H 02/10/18 06:17 LDL Cholesterol, Calc 135 mg/dL (0-99) H 02/10/18 06:17 VLDL Cholesterol, Calc 13 mg/dL (< 31) 02/10/18 06:17 HDL Cholesterol 74 mg/dL (40-59) H 02/10/18 06:17 Cholesterol/HDL Ratio 3.0 (0-4.9) 02/10/18 06:17 Urine Color Yellow (Yellow) 02/09/18 13:20 Urine Clarity Clear (Clear) 02/09/18 13:20 Urine pH 6.0 pH Units (5.0-8.0) 02/09/18 13:20 Ur Specific Roy 1.021 (1.010-1.025) 02/09/18 13:20 Urine Protein 30 mg/dL (Neg-Trace) H 02/09/18 13:20 Urine Glucose (UA) Normal mg/dL (Normal) 02/09/18 13:20 Urine Ketones Negative mg/dL (Negative) 02/09/18 13:20 Urine Blood Negative (Negative) 02/09/18 13:20 Urine Nitrite Negative (Negative) 02/09/18 13:20 Urine Bilirubin Negative (Negative) 02/09/18 13:20 Urine Urobilinogen Normal mg/dL (Normal) 02/09/18 13:20 Ur Leukocyte Esterase Small (Negative) H 02/09/18 13:20 Urine Microscopic RBC 0-3 per hpf (0-3) 02/09/18 13:20 Urine Microscopic WBC 5-15 per hpf (0-3) H 02/09/18 13:20 Ur Squamous Epith Cells Many per lpf (None-Few) H 02/09/18 13:20 Urine Bacteria Moderate per hpf (None-Few) H 02/09/18 13:20 Hyaline Casts None Seen per lpf (None-Few) 02/09/18 13:20 Salicylates < 2.5 mg/dL (15.0-30.0) L 02/09/18 13:27 Urine Opiates Screen Negative ng/mL (Larxuy=116) 02/09/18 13:25 Acetaminophen < 10 mcg/mL (10-20) L 02/09/18 13:27 Ur Barbiturates Screen Negative ng/mL (Akuucr=436) 02/09/18 13:25 Ur Phencyclidine Scrn Negative ng/mL (Cutoff=25) 02/09/18 13:25 Ur Amphetamines Screen Negative ng/mL (Nfhgpt=7089) 02/09/18 13:25 U Benzodiazepines Scrn Negative ng/mL (Ejpdwg=154) 02/09/18 13:25 Urine Cocaine Screen Negative ng/mL (Cutoff= 300) 02/09/18 13:25 U Marijuana (THC) Screen Negative ng/mL (Cutoff = 50) 02/09/18 13:25 Ethyl Alcohol < 10 mg/dL (Less than 10) 02/10/18 06:17 Consult Discharge Plan - Plan Referrals: NONE,PCP [Primary Care Provider] -
[2018-02-10] MEDS: Thiamine (B-1) 100 MG, Folic Acid 1 MG, MVI, adult with vitamin K 10 ML in 0.9 % Sodi... IVPB SCH (18:54)
[2018-02-10] MEDS: traZODone 50 MG TABLET PO PRN (21:11)
[2018-02-11] MEDS: *HR* Enoxaparin 40 MG/0.4 ML SYRINGE SQ SCH (05:24)
[2018-02-11 06:05] LABS: Basophils % 0.3 %; Eosinophils # 0.2 K/mcL (0.0-0.6); Eosinophils % 6.1 %; Hematocrit 34.3 % (35.3-44.9); Hemoglobin 11.4 g/dL (11.5-15.4); Immature Granulocytes % 0.3 % (0-4); Lymphocytes % 26.2 %; Mean Corpuscular HGB Conc 33.2 g/dL (31.6-35.5); Mean Corpuscular Hemoglobin 31.2 pg (28.0-33.3); Mean Platelet Volume 8.6 fL (9.4-12.4); Monocytes # 0.5 K/mcL (0.0-1.3); Monocytes % 11.7 %; Neutrophils # 2.2 K/mcL (1.6-8.9); Platelet Count 199 K/mcL (140-400); Red Blood Count 3.65 M/mcL (3.82-4.97); Red Cell Distribution Width 14.5 % (11.5-14.5); Segmented Neutrophils % 55.4 %
[2018-02-11 06:19] LABS: Magnesium 1.7 mg/dL (1.6-2.6); Phosphorous 3.9 mg/dL (2.7-4.5)
[2018-02-11 06:21] LABS: Alanine Aminotransferase 24 Units/L (7-52); Albumin 3.4 g/dL (3.5-5.7); Albumin/Globulin Ratio 1.9 (1.1-2.2); Alkaline Phosphatase 46 Units/L (34-104); Aspartate Amino Transferase 25 Units/L (13-39); BUN/Creatinine Ratio 19 (6-26); Bilirubin,Total 0.5 mg/dL (0.3-1.0); Blood Urea Nitrogen 11 mg/dL (6-20); Calcium 8.7 mg/dL (8.6-10.3); Carbon Dioxide 25 mEq/L (23-29); Chloride 107 mEq/L (98-107); Globulin 1.8 g/dL (2.4-3.5); Glucose 93 mg/dL (70-105); Osmolality,Calculated 283 (280-300); Potassium 3.9 mEq/L (3.5-5.1); Sodium 137 mEq/L (136-145); Total Protein 5.2 g/dL (6.4-8.9); eGFR For African Americans > 60 (> 60); eGFR For Non-African Americans > 60 (> 60)
[2018-02-11] MEDS: Acetaminophen 325 MG TABLET PO PRN (06:26)
[2018-02-11] MEDS: FLUoxetine 20 MG CAPSULE PO SCH (07:33)
[2018-02-11] MEDS: BuPROPion XL (24 HR) 150 MG TABLET PO SCH (07:34)
[2018-02-11] MEDS: Folic Acid 1 MG TABLET PO SCH (07:34)
--- NOTE | 2018-02-11 15:26 | Internal Med Progress Note ---
Date of Encounter: 02/11/18 Time of Encounter: 15:24 - Assessment and plan (1) Alcohol intoxication Current Visit: Yes Status: Acute Assessment and plan: Pt denies alcohol abuse history will continue CIWA monitoring at this time folate/thiamine supplementation psych evaluation appreciated awaiting d/c to rehab in am Qualifiers: Complication of substance-induced condition: with delirium Qualified Code(s ): F10.921 - Alcohol use, unspecified with intoxication delirium (2) Chronic back pain greater than 3 months duration Current Visit: Yes Status: Chronic Assessment and plan: continue home meds (3) Anxiety and depression Current Visit: Yes Status: Chronic Assessment and plan: continue home meds (4) DVT prophylaxis Current Visit: Yes Status: Acute Assessment and plan: lovenox SQ (5) Tobacco abuse Current Visit: Yes Status: Chronic Assessment and plan: Hx of chronic tobacco abuse. Reports smoking up to 1/2 PPD when she drinks. Has no interest in quitting now d/t stressors in her life. (6) Obesity (BMI 30-39.9) Current Visit: Yes Status: Chronic - Time Spent With Patient Total time spent is greater than 50% in coordination of care (as documented) at patient's floor/unit and/or counseling patient: - Subjective Interval history: Pt seen and examined at bedside. Pt denies any SI or HI Pt cleared by psych for discharge however pt has reported history of alcohol abuse and dependence. Pt has a guest services officer who informed the patient that she will need to be discharged to the rehab program from the hospital or she will be imprisoned, this was the information provided the patient. The RN and social work lecturer verified this information Pt to get evaluated by the rehab group in am with possible discharge to rehab program in am. - Constitutional Vitals: Temp Pulse Resp BP Pulse Ox 98.2 F 100 18 153/104 98 02/11/18 11:14 02/11/18 11:14 02/11/18 11:14 02/11/18 11:14 02/11/18 11:14 General appearance: Present: cooperative, A&O X 3, no acute distress, obese, answers questions appropriately - Head Head exam: Present: atraumatic, normocephalic - Eye Eye exam: Present: conjuntiva pink, sclera anicteric - Respiratory Respiratory exam: Present: CTAB. Absent: respiratory distress, wheezes - Cardiovascular Cardiovascular exam: Present: RRR, +S1, +S2. Absent: diastolic murmur, gallop, rubs, systolic murmur - GI/Abdominal GI/Abdominal exam: Present: normal bowel sounds, soft, no peritoneal signs. Absent: distended, tenderness - Extremities Exam Extremities exam: Present: warm, radial pulses palpable and symmetrical. Absent : calf tenderness - Neurological Exam Neurological exam: Present: oriented X3 Internal Medicine: Result - Labs CBC & Chem 7: 02/11/18 05:03 02/11/18 05:03 Labs: Short CBC 02/11/18 Range/Units 05:03 WBC 3.9 L (4.3-11.1) K/mcL Hgb 11.4 L (11.5-15.4) g/dL Hct 34.3 L (35.3-44.9) % Plt Count 199 (140-400) K/mcL Neutrophils # 2.2 (1.6-8.9) K/mcL BMP 02/11/18 05:03 Sodium 137 Potassium 3.9 Chloride 107 Carbon Dioxide 25 BUN 11 Creatinine 0.58 L Glucose 93 Calcium 8.7 Liver Function 02/11/18 Range/Units 05:03 Total Bilirubin 0.5 (0.3-1.0) mg/dL AST 25 (13-39) Units/L ALT 24 (7-52) Units/L Alkaline Phosphatase 46 (34-104) Units/L Albumin 3.4 L (3.5-5.7) g/dL - ABG Interpretation ABG results: PT/INR, D-dimer PT 10.6 Seconds (9.4-12.1) 02/10/18 06:17 Consult Discharge Plan - Plan Referrals: NONE,PCP [Primary Care Provider] -
[2018-02-11] MEDS: Thiamine (B-1) 100 MG, Folic Acid 1 MG, MVI, adult with vitamin K 10 ML in 0.9 % Sodi... IVPB SCH (16:45)
[2018-02-11] MEDS ORDERED: OXYCODONE Oral CONC 10 MG/0.5 ML ORAL.SYG SL PRN (20:15)
[2018-02-11] MEDS ORDERED: hydrOXYzine pamoate 25 MG CAPSULE PO PRN (20:17)
[2018-02-11] MEDS: *HR* HYDROcodone/Acet 5/325 mg TABLET PO PRN (21:09)
[2018-02-11] MEDS: traZODone 50 MG TABLET PO PRN (21:10)
[2018-02-12 04:49] LABS: Basophils % 0.4 %; Eosinophils # 0.3 K/mcL (0.0-0.6); Eosinophils % 5.3 %; Hematocrit 34.5 % (35.3-44.9); Hemoglobin 11.7 g/dL (11.5-15.4); Immature Granulocytes % 0.2 % (0-4); Lymphocytes # 1.5 K/mcL (0.6-4.6); Lymphocytes % 29.4 %; Mean Corpuscular HGB Conc 33.9 g/dL (31.6-35.5); Mean Corpuscular Hemoglobin 31.6 pg (28.0-33.3); Mean Corpuscular Volume 93.2 fL (83.0-100.0); Mean Platelet Volume 8.3 fL (9.4-12.4); Monocytes # 0.6 K/mcL (0.0-1.3); Monocytes % 11.6 %; Neutrophils # 2.6 K/mcL (1.6-8.9); Platelet Count 205 K/mcL (140-400); Red Cell Distribution Width 14.4 % (11.5-14.5); Segmented Neutrophils % 53.1 %
[2018-02-12 05:04] LABS: Magnesium 1.7 mg/dL (1.6-2.6); Phosphorous 4.4 mg/dL (2.7-4.5)
[2018-02-12 05:06] LABS: Alanine Aminotransferase 27 Units/L (7-52); Albumin 3.6 g/dL (3.5-5.7); Albumin/Globulin Ratio 1.9 (1.1-2.2); Alkaline Phosphatase 53 Units/L (34-104); Aspartate Amino Transferase 28 Units/L (13-39); BUN/Creatinine Ratio 17 (6-26); Bilirubin,Total 0.4 mg/dL (0.3-1.0); Blood Urea Nitrogen 11 mg/dL (6-20); Carbon Dioxide 24 mEq/L (23-29); Chloride 105 mEq/L (98-107); Globulin 1.9 g/dL (2.4-3.5); Glucose 105 mg/dL (70-105); Osmolality,Calculated 284 (280-300); Potassium 3.7 mEq/L (3.5-5.1); Sodium 137 mEq/L (136-145); Total Protein 5.5 g/dL (6.4-8.9); eGFR For African Americans > 60 (> 60); eGFR For Non-African Americans > 60 (> 60)
[2018-02-12] MEDS: *HR* Enoxaparin 40 MG/0.4 ML SYRINGE SQ SCH (05:28)
[2018-02-12] MEDS: *HR* HYDROcodone/Acet 5/325 mg TABLET PO PRN ×2 (06:14→13:45)
[2018-02-12] MEDS: FLUoxetine 20 MG CAPSULE PO SCH (09:02)
[2018-02-12] MEDS: BuPROPion XL (24 HR) 150 MG TABLET PO SCH (09:02)
[2018-02-12] MEDS: Folic Acid 1 MG TABLET PO SCH (09:02)
[2018-02-12 11:30] VITALS: BP 127/86
[2018-02-12] MEDS ORDERED: *HR* OxyCODONE Immed Rel 5 MG TABLET PO PRN (11:40)
--- NOTE | 2018-02-12 11:51 | Discharge Summary ---
Date of Encounter: 02/12/18 Time of Encounter: 11:49 - Discharge Diagnosis (1) Alcohol intoxication Priority: Primary Status: Acute Qualifiers: Complication of substance-induced condition: with delirium Qualified Code(s ): F10.921 - Alcohol use, unspecified with intoxication delirium (2) Chronic back pain greater than 3 months duration Priority: Secondary Status: Chronic (3) Anxiety and depression Priority: Secondary Status: Chronic (4) Tobacco abuse Priority: Secondary Status: Chronic (5) Obesity (BMI 30-39.9) Priority: Secondary Status: Chronic Hospital course: Ms. Linton is a 57 year old female w/PMH of alcohol abuse, tobacco abuse, chronic depression and anxiety, and chronic back pain presents from the ED w/ chief complaint of alcohol intoxication. Patient reported she drank half a fifth of gin. Called her catalytic case operator to say "she did not care anymore and was ready for Jarett". Patient denied any history of suicidal ideations or attempts. Reported psychiatric hospitalization in [place] 3 years ago for nervous breakdown. Reported that her father in October and she has been spiraling ever since. She was admitted and monitored for withdrawals. We were in contact with the officers as the patient is on probation and we confirmed that she can be discharged home as their was initial confusion that she would need to go to longterm for violating her probation. She was recommended alcohol rehab which she is interested in and was given numbers to contact. She was cleared by psych as not suicidal and recommended outpatient follow up. She was discharged on 02/12 - Time Spent with Patient Total time spent providing and/or coordinating discharge services: Greater than 30 minutes - Discharge Medications Prescriptions: Thiamine (B-1) [Vitamin B-1] 100 mg PO DAILY #30 tablet Home Medications: Atomoxetine [Strattera] 40 mg PO DAILY 02/09/18 [History] BuPROPion XL (24 HR) [Wellbutrin Xl] 150 mg PO DAILY 02/09/18 [History] FLUoxetine HCl [Prozac] 40 mg PO DAILY 02/09/18 [History] Folic Acid 1 mg PO DAILY 02/09/18 [History] Lisinopril [Zestril] 5 mg PO DAILY 02/09/18 [History] Meloxicam [Mobic] 7.5 mg PO BID PRN 02/09/18 [History] Methotrexate [Otrexup] 15 mg PO QWEEK 02/09/18 [History] Naltrexone HCl 50 mg PO DAILY 02/09/18 [History] Pantoprazole Sodium [Protonix] 40 mg PO DAILY 02/09/18 [History] Quetiapine Fumarate [Seroquel] 200 mg PO BID 02/09/18 [History] Trazodone HCl 150 mg PO HS PRN 02/09/18 [History] hydrOXYzine pamoate [HydrOXYzine Pamoate] 25 - 50 mg PO BID PRN 02/09/18 [ History] Thiamine (B-1) [Vitamin B-1] 100 mg PO DAILY #30 tablet 02/12/18 [Rx] Allergies/Adverse Reactions: 3 Allergy/AdvReac Type Severity Reaction Status Date / Time No Known Allergies Allergy Verified 02/09/18 13:13 Date of admission: 02/09/18 15:58 Primary care physician: PCP NONE Consults: 02/09/18 16:07 Consult to Psychiatry [CONS] Routine Consulting Provider: [facility] [place] Reason for Consult: Patient is an admitted alcohol who suffers from severe depression and anxiety for the past 40 years. Father in October and reports she is spiraling. Drinks 1/2 fifth of gin. Reports drinking 1/2 fifth last night and 1/2 fifth this morning. Denies any hx of suicidal ideations or attempts. Reports she was hospitalized in [place] for nervous breakdown 3 years ago. Brought to ED by wind tunnel engineer after she told wind tunnel engineer "she did not care anymore and was ready for Jarett". Sitter placed w/ pt. and CIWA protocol ordered. Call Completed: Yes - Constitutional Vitals: Temp Pulse Resp BP Pulse Ox 98.2 F 90 17 127/86 92 02/12/18 11:29 02/12/18 11:29 02/12/18 11:29 02/12/18 11:29 02/12/18 11:29 General appearance: Present: cooperative, A&O X 3, no acute distress, obese, answers questions appropriately Exam: GEN: NAD CVS: RRR. S1, S2, No m/r/g RESP: CTAB ABD: Soft, NT, ND, +BS EXT: No edema. 2+ DP. No rashes NEURO: Nonfocal - Patient Status Disposition: Transfer Other Condition: Fair Overall status at discharge: patient is progressing back to baseline - Discharge Instructions Instructions: Suicide Prevention for Adults (GEN), Alcohol Dependence (GEN) Follow Up With: NONE,PCP [Primary Care Provider] - (tried calling PCP but office closed ) - Diet and Activity Activity: increase activity as tolerated Diet: regular diet
[2018-02-13] MEDS ORDERED: Thiamine (B-1) 100 MG TABLET PO SCH (09:00)
== END 2018-02-12 15:25 | disposition other institution (70) | DRG 897 ==
LOC: 2ANU 12:59 → EMEROO 12:59 → 2ANU 15:42
PROVIDERS: ADMIT Internal Medicine Cardiovascular Disease; ATTEND Internal Medicine

== ENCOUNTER 2018-07-20 17:23 | Inpatient (IN) ==
[2018-07-20] MEDS ORDERED: Ondansetron ODT 4 MG TAB.RAPDIS SL PRN (21:09)
[2018-07-20] MEDS ORDERED: Naloxone 0.4 MG/ML INJ IVP PRN (21:09)
[2018-07-20] MEDS ORDERED: Acetaminophen 325 MG TABLET PO PRN (21:09)
[2018-07-20] MEDS ORDERED: Ketorolac 30 MG/ML VIAL IM PRN (21:14)
[2018-07-20] MEDS ORDERED: hydrOXYzine pamoate 25 MG CAPSULE PO PRN (21:16)
[2018-07-20] MEDS ORDERED: traMADol 50 MG TABLET PO PRN (21:26)
--- NOTE | 2018-07-20 21:26 | Orthopedic Consult Note ---
Date of Encounter: 07/20/18 Time of Encounter: 21:21 History of Present Illness Chief complaint: Right hip pain HPI: Ms. Linton is a 57 year old female sustained an injury to her right hip in a mechanical fall today. The patient states that she fell over her large dogs on to her right hip. She had immediate pain and had the inability to ambulate. She denies dizziness and vertigo blackout etc. She denies other injuries. She presented initially to [facility] where x-rays and a CT scan revealed evidence of a right hip fracture. She was transferred to [facility] at patient's request for definitive orthopedic management. I have reviewed the patient's previous past medical and surgical history. The patient has had a previous right total knee arthroplasty in the distant past. Patient has no known drug allergies. Gen. nation reveals a pleasant 57-year-old woman in minimal distress while lying in the hospital bed. Examination of the right hip is very limited but there is pain with any attempts at range of motion. There is a well-healed midline incision over the right knee from previous knee replacement surgery. No leg length discrepancy. Mild increased external rotation of the right lower extremity. Neurovascular exam is intact. I reviewed x-rays of the pelvis and right hip. These are performed at [facility]. There is evidence of a subcapital fracture of the right proximal femur. CT scan reveals this fracture. There is minor rotation and some valgus change. Impression: Minimally displaced right femoral neck fracture Recommendation: At a very long discussion with the patient regarding the fracture and the treatment options. This is a surgical fracture and I see the patient that just to remove viable options, the first being a cannulated screw fixation the second being a hemiarthroplasty. We discussed the surgical procedure as well as potential risks and complications of each at length. I feel a and light of the patient's young age and activity level that attempting to save her femoral head would be the primary concern, this would be best accomplished with cannulated screw fixation. She understands this is a much less involved surgical procedure than a hemiarthroplasty but does care the concerns for possible nonunion or even avascular necrosis which would necessitate conversion to a hemiarthroplasty or total hip arthroplasty in the future. Patient understands and agrees to proceeding with a percutaneous screw fixation of the right hip. Informed consent was obtained. We will schedule her for surgery tomorrow when operating time is available. Thank you very much for allowing me to seen care for Ms. Linton. Sincerely, Dm Hung,DO Past Med Surg Social Fam HX - Past Medical History Medical history: hypertension, other Additional medical history: osteoarthritis, mixed tissue disease Psychiatric history: depression, previous psychiatric hospitalization - Past Surgical History Surgical History: hysterectomy, knee replacement Additional surgical history: Gastric Bypass, Carpal Tunnel, Ulcer, right knee replacement - Social History Smoking Status: Current some day smoker Packs per day: 1/2 pack day Smokeless Tobacco Status: No Alcohol use: heavy, recent Drug use: none - Family History Mother Family Member Ethnicity: Non- Living Status: Still Living Son Family Member Ethnicity: Non- Living Status: Still Living Father Living Status: Hx Family Endocrine Disorder: Yes (DM) Medications and Allergies BuPROPion XL (24 HR) [Wellbutrin Xl] 150 mg PO DAILY 02/09/18 [History] FLUoxetine HCl [Prozac] 40 mg PO DAILY 02/09/18 [History] Lisinopril [Zestril] 5 mg PO DAILY 02/09/18 [History] Naltrexone HCl 50 mg PO DAILY 02/09/18 [History] Pantoprazole Sodium [Protonix] 40 mg PO DAILY 02/09/18 [History] Quetiapine Fumarate [Seroquel] 200 mg PO BID 02/09/18 [History] hydrOXYzine pamoate [HydrOXYzine Pamoate] 25 - 50 mg PO BID PRN 02/09/18 [ History] Acetaminophen [Extra Strength Non-Aspirin] 500 mg PO Q6HR PRN 07/20/18 [History] Amitriptyline [Elavil] 10 mg PO HS 07/20/18 [History] Etodolac [Lodine] 400 mg PO BID 07/20/18 [History] 3 Allergy/AdvReac Type Severity Reaction Status Date / Time No Known Allergies Allergy Verified 02/09/18 13:13 All Systems Reviewed: The remainder of the systems were reviewed and are negative Physical Exam - Constitutional Vitals: Temp Pulse Resp BP Pulse Ox 99.0 F 76 16 111/77 94 07/20/18 19:38 07/20/18 19:38 07/20/18 19:38 07/20/18 19:38 07/20/18 19:38 Results - Labs Labs: All other labs normal. - Diagnostic results Hip x-ray: image reviewed Hip CT: image reviewed Consult Discharge Plan - Plan Referrals: NONE,PCP [Primary Care Provider] -
--- NOTE | 2018-07-20 21:34 | Internal Med History&Physical ---
Date of Encounter: 07/20/18 Time of Encounter: 21:34 Internal Medicine - H&P: HPI Chief complaint: right hip pain Admitted From: Hospital to Hospital Transfer Plans for Post Hospital Care: Home History of present illness: Ms. Linton is a 57 year old female hx mixed connective tissue disease and osteoarthritis presented to [facility] ED after fall for right hip pain. Fall occurs early today when she tripped over her dogs and fell directly on her right hip and elbows. She has no other injuries, did not hit her head, and denies dizziness. She describes sharp pain in right hip whenever she moves and achy pain in low back increased from her baseline. Denies red flags such as saddle anesthesia, fever, bowel or bladder incontinence. In [facility] ED, vitals afebrile HR 96 BP 143/104, R18 and 96% improved to BP 114/ [address] right lower extremity showed subcapital femur fracture with mild anterior displacement and mild comminuted. She has given two doses of 0.5 Dilaudid and Tordol 15 then 30 for pain. She has never been evaluated for her chronic right leg pain and tingling starting in low back and radiating down lateral side down to knee. Denies any problems with right knee catching or instability. PMHx also includes GERD, depression & anxiety, fibromalagia, psoriasis, IRVING before weight loss, and hypertension with orthostatic hypotension leading to periodic syncopal episodes that last in October 2017 - denies osteoporosis or DM. Surgical hx includes total hysterectomy, gastric bypass, and right knee replacement over 10 years ago without any adverse reaction to anesthesia. FmHx father with DM. She is being treated for alcohol abuse disorder and doesn't drink now. She smokes one pack per week with as 20 pkyr history. Denies illicit drug use. Past Med Surg Social Fam HX - Past Medical History Medical history: hypertension, other Additional medical history: osteoarthritis, mixed tissue disease Psychiatric history: depression, previous psychiatric hospitalization - Past Surgical History Surgical History: hysterectomy, knee replacement Additional surgical history: Gastric Bypass, Carpal Tunnel, Ulcer, right knee replacement - Social History Smoking Status: Current some day smoker Packs per day: 1/2 pack day Smokeless Tobacco Status: No Alcohol use: heavy, recent Drug use: none - Family History Mother Family Member Ethnicity: Non- Living Status: Still Living Son Family Member Ethnicity: Non- Living Status: Still Living Father Living Status: Hx Family Endocrine Disorder: Yes (DM) Internal Medicine - H&P: Meds BuPROPion XL (24 HR) [Wellbutrin Xl] 300 mg PO DAILY 02/09/18 [History] FLUoxetine HCl [Prozac] 60 mg PO DAILY 02/09/18 [History] Lisinopril [Zestril] 5 mg PO DAILY 02/09/18 [History] Naltrexone HCl 50 mg PO DAILY MDD 1/2 tablet 02/09/18 [History] Pantoprazole Sodium [Protonix] 40 mg PO DAILY 02/09/18 [History] Quetiapine Fumarate [Seroquel] 200 mg PO DAILY 02/09/18 [History] hydrOXYzine pamoate [HydrOXYzine Pamoate] 25 - 50 mg PO BID PRN 02/09/18 [ History] Acetaminophen [Extra Strength Non-Aspirin] 500 mg PO Q6HR PRN 07/20/18 [History] Amitriptyline [Elavil] 10 mg PO HS 07/20/18 [History] Etodolac [Lodine] 400 mg PO BID 07/20/18 [History] 3 Allergy/AdvReac Type Severity Reaction Status Date / Time No Known Allergies Allergy Verified 02/09/18 13:13 All Systems PM: A 10-system review of systems was performed and is negative for pertinent findings except as documented above in the HPI. - Constitutional Constitutional: fatigue, falls, no chills, no fever(s) Additional comments: fatigue at baseline - EENT Eyes: no blurry vision, no change in vision - Cardiovascular Cardiovascular ROS IM: no chest pain, no irregular heart rhythm, no lightheadedness, no palpitations, no syncope - Respiratory Respiratory: no cough, no dyspnea on exertion, no wheezing - Gastrointestinal Gastrointestinal: no constipation, no diarrhea, no vomiting - Genitourinary Genitourinary: no difficulty urinating, no dysuria, no urinary frequency, no urinary incontinence - Musculoskeletal Musculoskeletal ROS IM: arthralgias, joint swelling, numbness, tingling - Integumentary Integumentary IM: no erythema, no non-healing lesions, no rash - Neurological Neurological ROS: numbness, tingling, no disequilibrium, no headache(s) - Psychiatric Psychiatric: anxiety, depression - Endocrine Endocrine IM: no polyuria - Constitutional Vitals: Temp Pulse Resp BP Pulse Ox 99.0 F 76 16 111/77 94 07/20/18 19:38 07/20/18 19:38 07/20/18 19:38 07/20/18 19:38 07/20/18 19:38 General appearance: Present: cooperative, mild distress, A&O X 3, obese, answers questions appropriately Exam: laying flat in bed - Head Head exam: Present: atraumatic, normocephalic - Respiratory Respiratory exam: Present: CTAB. Absent: rales, wheezes - Cardiovascular Cardiovascular exam: Present: RRR. Absent: gallop, rubs - GI/Abdominal GI/Abdominal exam: Present: hypoactive bowel sounds, soft. Absent: mass, tenderness - Extremities Exam Extremities exam: Present: warm, radial pulses palpable and symmetrical. Absent : pedal edema - Expanded Lower Extremities Exam Hip exam: Present: tenderness. Absent: abrasion, dislocation, ecchymosis, erythema, external rotation, internal rotation - Neurological Exam Neurological exam: Present: reflexes normal, no focal deficits. Absent: motor sensory deficit - Psychiatric Psychiatric exam: Present: normal affect, normal mood - Skin Skin exam: Present: abrasion, intact. Absent: diaphoretic, erythema Additional comments: abrasion to right elbow, skin changes with pale patches no rash - Assessment and plan (1) Femur fracture, right Current Visit: Yes Status: Acute Assessment and plan: Surgery already consulted and saw patient - procedure planned and abx per their orders - NPO at midnight - Tordal 30 q 6 KYLE - Ultram PRN per pharmacy recommendations that is is opiate class least likely to interact with home Naltrexone - hold naltrexone - EKG for baseline pre-op - Coag labs for pre-op - CMP for medications dosing Femur location: unspecified portion of femur (2) Hypertension Current Visit: Yes Status: Acute Assessment and plan: Essential hypertension with history of orthostatic hypotension resulting in syncope - Orthostatic vitals without concerning changes; laying 98/61 HR82: sitting 109/ 71 HR 82 - continue Lisinopril Qualifiers: Hypertension type: essential hypertension Qualified Code(s): I10 - Essential (primary) hypertension (3) IRVING (obstructive sleep apnea) Current Visit: Yes Status: Acute Assessment and plan: History of IRVING but non-compliant with Cpap since significant weight loss -overnight pulse oxygen - may need repeat sleep study as out patient (4) DVT prophylaxis Current Visit: No Status: Acute Assessment and plan: heparin sq - Time Spent With Patient Total time spent is greater than 50% in coordination of care (as documented) at patient's floor/unit and/or counseling patient: Greater than 35 minutes
[2018-07-20 22:25] LABS: Basophils % 0.3 %; Eosinophils # 0.2 K/mcL (0.0-0.6); Eosinophils % 1.9 %; Hematocrit 34.5 % (35.3-44.9); Hemoglobin 11.8 g/dL (11.5-15.4); Immature Granulocytes % 0.4 % (0-4); Lymphocytes # 1.7 K/mcL (0.6-4.6); Lymphocytes % 22.4 %; Mean Corpuscular HGB Conc 34.2 g/dL (31.6-35.5); Mean Corpuscular Hemoglobin 30.6 pg (28.0-33.3); Mean Corpuscular Volume 89.6 fL (83.0-100.0); Mean Platelet Volume 8.3 fL (9.4-12.4); Monocytes # 0.9 K/mcL (0.0-1.3); Monocytes % 11.2 %; Platelet Count 297 K/mcL (140-400); Red Blood Count 3.85 M/mcL (3.82-4.97); Red Cell Distribution Width 13.4 % (11.5-14.5); Segmented Neutrophils % 63.8 %
[2018-07-20 22:31] LABS: Prothrombin Time 11.7 Seconds (9.4-12.1)
[2018-07-20 22:46] LABS: Alanine Aminotransferase 15 Units/L (7-52); Albumin 3.8 g/dL (3.5-5.7); Albumin/Globulin Ratio 1.8 (1.1-2.2); Alkaline Phosphatase 68 Units/L (34-104); Aspartate Amino Transferase 14 Units/L (13-39); BUN/Creatinine Ratio 17 (6-26); Bilirubin,Total 0.4 mg/dL (0.3-1.0); Blood Urea Nitrogen 15 mg/dL (6-20); Calcium 9.1 mg/dL (8.6-10.3); Carbon Dioxide 25 mEq/L (23-29); Chloride 103 mEq/L (98-107); Globulin 2.1 g/dL (2.4-3.5); Glucose 156 mg/dL (70-105); Osmolality,Calculated 282 (280-300); Potassium 3.4 mEq/L (3.5-5.1); Sodium 134 mEq/L (136-145); Total Protein 5.9 g/dL (6.4-8.9); eGFR For Non-African Americans > 60 (> 60)
[2018-07-21] MEDS ORDERED: Ketorolac 30 MG/ML VIAL IM SCH
[2018-07-21] MEDS: *HR* Heparin 5,000 UNIT/ML VIAL SQ SCH ×3 (00:13→15:22)
[2018-07-21] MEDS: Ketorolac 30 MG/ML VIAL IVP SCH ×3 (06:18→18:23)
[2018-07-21] MEDS ORDERED: traMADol 50 MG TABLET PO PRN (08:26)
[2018-07-21] MEDS ORDERED: BuPROPion XL (24 HR) 150 MG TABLET PO SCH (09:00)
[2018-07-21] MEDS ORDERED: FLUoxetine 20 MG CAPSULE PO SCH (09:00)
--- NOTE | 2018-07-21 09:54 | Internal Med Progress Note ---
<Yasir Beltran S - Last Filed: 07/21/18 11:16> Hospitalist Progress Note - Encounter Date of Encounter: 07/21/18 Time of Encounter: 09:50 - Subjective Interval History: Ms. Linton is a 57 yo female with PMH anxiety, depression, EtOH abuse, mixed connective tissue dz, psoriasis, and osteoarthritis. She presented to the ER after falling on her right hip, she was transferred to [place] from [facility]. She had a fall earlier in the day yesterday after tripping over her dog and falling onto her hip and right elbow. She denies any head trauma, LOC. She had sharp pain in the right hip whenever she moved. In the ER had a CT of the right LE which showed subcapital femur fracture with mild anterior displacement and mild comminuted. -denies any B&B dysfxn, saddle anesthesia, or lower extremity numbness/tingling The pt was evaluated by orthopedic surgery and the pt decided to proceed with surgery, cannulated screw fixation. Today the pt complains of right hip pain. She states it is the worst pain she has ever had. -Denies active chest pain, SOB, N/V/D - the pt continues to deny bladder/bowel dyscontrol, saddle anesthesia - Exam Vitals: Temp Pulse Resp BP Pulse Ox 98.4 F 81 18 113/76 96 07/21/18 08:11 07/21/18 08:11 07/21/18 08:11 07/21/18 08:11 07/21/18 08:11 Exam: general - aox3, minimal distress, cooperative cardio - rrr, s1s2, cta no mrg lungs - ctab, no wheeze rhonchi or rales, able to speak in full sentences without difficulty abd - ntnd, obese abdomen, no rebound or guarding skin - intact, no ulcers or open wounds extremities - no edema, strength 5/5 UE, did not test LE strength neuro - no FND - Assessment and Plan (1) Femur fracture, right Current Visit: Yes Status: Acute Assessment and Plan: Pt present s/p fall over dog -had c/o right hip pain -CT showed subcapital femur fracture with mild anterior displacement and mild comminuted PT 11.7 INR 1.0 Plan: -ortho consulted, plans to bring pt to OR today for sx -NPO for surgery -ultram q4hr and tourdol q6hr prn pain -cefazolin one time as per ortho - naltrexone held -would benefit from outpatient DEXA scan, has multiple risk factors including tobacco and etOH abuse -vitamin d level check (2) Mixed connective tissue disease Current Visit: No Status: Chronic Assessment and Plan: Chronic, outpt mangement (3) Alcohol abuse Current Visit: No Status: Chronic Assessment and Plan: Sober 4mos -hx of chronic etOH abuse, drank a fifth of liquor per week -on natreoxine for etoh abuse, currently held for sx (4) Anxiety and depression Current Visit: No Status: Chronic Assessment and Plan: Continue Elvail, wellbutrin, prozac, seroquel (5) DVT prophylaxis Current Visit: Yes Status: Acute Assessment and Plan: sq heparin (6) Tobacco abuse Current Visit: No Status: Chronic Assessment and Plan: 1pack per month -NRT if pt needs -counseling provided (7) Obesity (BMI 30-39.9) Current Visit: No Status: Chronic Assessment and Plan: BMI 31.7 -lifestyle change (8) IRVING (obstructive sleep apnea) Current Visit: No Status: Chronic Assessment and Plan: Noncompliant -will benefit from outpt sleep study -overnight pulse ox as per night team (9) Hypertension Current Visit: No Status: Chronic Assessment and Plan: BP 113/76 -well controlled -continue lisinopril (10) GERD (gastroesophageal reflux disease) Current Visit: No Status: Chronic Assessment and Plan: On prilosec -continue home meds DVT Prophylaxis: heparin sq - Time Spent with Patient Total time spent is greater than 50% in coordination of care (as documented) at patient's floor/unit and/or counseling patient: less than 15 minutes Plan of Care Discussed with: patient Internal Medicine: Result - Labs CBC & Chem 7: 07/20/18 21:55 07/20/18 21:55 Labs: Short CBC 07/20/18 Range/Units 21:55 WBC 7.8 (4.3-11.1) K/mcL Hgb 11.8 (11.5-15.4) g/dL Hct 34.5 L (35.3-44.9) % Plt Count 297 (140-400) K/mcL Neutrophils # 5.0 (1.6-8.9) K/mcL BMP 07/20/18 21:55 Sodium 134 L Potassium 3.4 L Chloride 103 Carbon Dioxide 25 BUN 15 Creatinine 0.88 Glucose 156 H Calcium 9.1 Liver Function 07/20/18 Range/Units 21:55 Total Bilirubin 0.4 (0.3-1.0) mg/dL AST 14 (13-39) Units/L ALT 15 (7-52) Units/L Alkaline Phosphatase 68 (34-104) Units/L Albumin 3.8 (3.5-5.7) g/dL - ABG Interpretation ABG results: PT/INR, D-dimer PT 11.7 Seconds (9.4-12.1) 07/20/18 21:55 Consult Discharge Plan - Plan Referrals: NONE,PCP [Primary Care Provider] - <Luna Bryan - Last Filed: 07/21/18 18:01> Hospitalist Progress Note - Encounter Date of Encounter: 07/21/18 - Exam Vitals: Temp Pulse Resp BP Pulse Ox 98.5 F 76 18 120/80 97 07/21/18 16:46 07/21/18 16:46 07/21/18 16:46 07/21/18 16:46 07/21/18 16:46 - Assessment and Plan (1) Anxiety and depression Current Visit: No Status: Chronic (2) DVT prophylaxis Current Visit: Yes Status: Acute (3) Tobacco abuse Current Visit: No Status: Chronic (4) Obesity (BMI 30-39.9) Current Visit: No Status: Chronic (5) Femur fracture, right Current Visit: Yes Status: Acute (6) IRVING (obstructive sleep apnea) Current Visit: No Status: Chronic (7) Hypertension Current Visit: No Status: Chronic (8) Mixed connective tissue disease Current Visit: No Status: Chronic (9) Alcohol abuse Current Visit: No Status: Chronic (10) GERD (gastroesophageal reflux disease) Current Visit: No Status: Chronic - Time Spent with Patient Total time spent is greater than 50% in coordination of care (as documented) at patient's floor/unit and/or counseling patient: Internal Medicine: Result - Labs CBC & Chem 7: 07/20/18 21:55 07/20/18 21:55 Labs: Short CBC 07/20/18 Range/Units 21:55 WBC 7.8 (4.3-11.1) K/mcL Hgb 11.8 (11.5-15.4) g/dL Hct 34.5 L (35.3-44.9) % Plt Count 297 (140-400) K/mcL Neutrophils # 5.0 (1.6-8.9) K/mcL BMP 07/20/18 21:55 Sodium 134 L Potassium 3.4 L Chloride 103 Carbon Dioxide 25 BUN 15 Creatinine 0.88 Glucose 156 H Calcium 9.1 Liver Function 07/20/18 Range/Units 21:55 Total Bilirubin 0.4 (0.3-1.0) mg/dL AST 14 (13-39) Units/L ALT 15 (7-52) Units/L Alkaline Phosphatase 68 (34-104) Units/L Albumin 3.8 (3.5-5.7) g/dL - ABG Interpretation ABG results: PT/INR, D-dimer PT 11.7 Seconds (9.4-12.1) 07/20/18 21:55 - Attending Attestation I examined this patient and my medical decision-making was reviewed with the Resident Physician Dr. Beltran. I agree with the documented findings, disposition and treatment plan as described except to the extent set forth below. Ms. Linton is a 57 year old female hx mixed connective tissue disease and osteoarthritis presented to [facility] ED after fall for right hip pain. CT right lower extremity showed subcapital femur fracture with mild anterior displacement and mild comminuted. Patient was admitted in our hospital for further care. Patient states are pain is well controlled with current medication. Gen: A, A< O x 3 Chest: Diminished BS b/l, No rales Heart: S1S2+ RRR Ext: Moderate tenderness Rt hip a/p 1. Acute Rt Femur fx Ortho consulted scheduled for surgery today moderate risk for major surgery like Hip replacement <Yasir Beltran S - Last Filed: 07/21/18 11:16> (1) Femur fracture, right Qualifiers: Encounter type: initial encounter Femur location: unspecified portion of femur Fracture type: closed Fracture morphology: unspecified fracture morphology Qualified Code(s): S72.91XA - Unspecified fracture of right femur, initial encounter for closed fracture (9) Hypertension Qualifiers: Hypertension type: essential hypertension Qualified Code(s): I10 - Essential (primary) hypertension (10) GERD (gastroesophageal reflux disease) Qualifiers: Esophagitis presence: without esophagitis Qualified Code(s): K21.9 - Gastro- esophageal reflux disease without esophagitis <Luna Bryan - Last Filed: 07/21/18 18:01> (5) Femur fracture, right Qualifiers: Encounter type: initial encounter Femur location: unspecified portion of femur Fracture type: closed Fracture morphology: unspecified fracture morphology Qualified Code(s): S72.91XA - Unspecified fracture of right femur, initial encounter for closed fracture (7) Hypertension Qualifiers: Hypertension type: essential hypertension Qualified Code(s): I10 - Essential (primary) hypertension (10) GERD (gastroesophageal reflux disease) Qualifiers: Esophagitis presence: without esophagitis Qualified Code(s): K21.9 - Gastro- esophageal reflux disease without esophagitis
--- NOTE | 2018-07-21 19:26 | Anesthesia Evaluation PreOp ---
Date of Encounter: 07/21/18 Time of Encounter: 20:59 - Past History Planned Operation: Right femoral sucapital fracture PP cannulated screws Cardiac History: HTN Pulmonary History: Smoker [employer] History: Other (SEVERE DEPRESSION, ALCOHOLISM, ON ORAL AND DEPOT INJECTABLE NALTREXONE) Other Medical History: Other (OSTEOARTHRITIS, CONNECTIVE TISSUE DISEASE) Anesthesia History: No Prior Anesthetic Complications, Past Anesthesia ( Hysterectomy, Gastric Bypass, Carpal Tunnel, Right TKA) Alcohol Use: heavy, recent Drug use: none Medications and Allergies Lisinopril [Zestril] 5 mg PO DAILY 02/09/18 [History] Naltrexone HCl 25 mg PO DAILY 02/09/18 [History] Pantoprazole Sodium [Protonix] 40 mg PO DAILY 02/09/18 [History] hydrOXYzine pamoate [HydrOXYzine Pamoate] 25 - 50 mg PO BID PRN 02/09/18 [ History] Acetaminophen [Extra Strength Non-Aspirin] 500 mg PO Q6HR PRN 07/20/18 [History] Bupropion HCl [Wellbutrin Xl] 300 mg PO QAM 07/21/18 [History] FLUoxetine HCl [PROzac] 60 mg PO HS 07/21/18 [History] Mirtazapine [Remeron] 15 mg PO HS 07/21/18 [History] Quetiapine Fumarate [Seroquel Xr] 200 mg PO HS 07/21/18 [History] 3 Allergy/AdvReac Type Severity Reaction Status Date / Time pregabalin [From Lyrica] AdvReac Swelling Verified 07/21/18 07:11 of Lip/Tongue/Throat - Meds/Allergy Pre-op Review Medications Reviewed: Yes Allergies Reviewed: Yes Beta Blockers on Current Med List: No Anesthesia Results - Labs 07/20/18 21:55 07/20/18 21:55 Laboratory Last Values WBC 7.8 K/mcL (4.3-11.1) 07/20/18 21:55 RBC 3.85 M/mcL (3.82-4.97) 07/20/18 21:55 Hgb 11.8 g/dL (11.5-15.4) 07/20/18 21:55 Hct 34.5 % (35.3-44.9) L 07/20/18 21:55 MCV 89.6 fL (83.0-100.0) 07/20/18 21:55 MCH 30.6 pg (28.0-33.3) 07/20/18 21:55 MCHC 34.2 g/dL (31.6-35.5) 07/20/18 21:55 RDW 13.4 % (11.5-14.5) 07/20/18 21:55 Plt Count 297 K/mcL (140-400) 07/20/18 21:55 MPV 8.3 fL (9.4-12.4) L 07/20/18 21:55 Immature Gran % 0.4 % (0-4) 07/20/18 21:55 Seg Neutrophils % 63.8 % 07/20/18 21:55 Lymphocytes % 22.4 % 07/20/18 21:55 Monocytes % 11.2 % 07/20/18 21:55 Eosinophils % 1.9 % 07/20/18 21:55 Basophils % 0.3 % 07/20/18 21:55 Neutrophils # 5.0 K/mcL (1.6-8.9) 07/20/18 21:55 Lymphocytes # 1.7 K/mcL (0.6-4.6) 07/20/18 21:55 Monocytes # 0.9 K/mcL (0.0-1.3) 07/20/18 21:55 Eosinophils # 0.2 K/mcL (0.0-0.6) 07/20/18 21:55 Basophils # 0.0 K/mcL (0.0-0.2) 07/20/18 21:55 PT 11.7 Seconds (9.4-12.1) 07/20/18 21:55 INR 1.0 07/20/18 21:55 Sodium 134 mEq/L (136-145) L 07/20/18 21:55 Potassium 3.4 mEq/L (3.5-5.1) L 07/20/18 21:55 Chloride 103 mEq/L (98-107) 07/20/18 21:55 Carbon Dioxide 25 mEq/L (23-29) 07/20/18 21:55 BUN 15 mg/dL (6-20) 07/20/18 21:55 Creatinine 0.88 mg/dL (0.60-1.20) 07/20/18 21:55 Est GFR ( Amer) > 60 (> 60) 07/20/18 21:55 Est GFR (Non-Af Amer) > 60 (> 60) 07/20/18 21:55 BUN/Creatinine Ratio 17 (6-26) 07/20/18 21:55 Glucose 156 mg/dL (70-105) H 07/20/18 21:55 Calculated Osmolality 282 (280-300) 07/20/18 21:55 Calcium 9.1 mg/dL (8.6-10.3) 07/20/18 21:55 Total Bilirubin 0.4 mg/dL (0.3-1.0) 07/20/18 21:55 AST 14 Units/L (13-39) 07/20/18 21:55 ALT 15 Units/L (7-52) 07/20/18 21:55 Alkaline Phosphatase 68 Units/L (34-104) 07/20/18 21:55 Serum Total Protein 5.9 g/dL (6.4-8.9) L 07/20/18 21:55 Albumin 3.8 g/dL (3.5-5.7) 07/20/18 21:55 Globulin 2.1 g/dL (2.4-3.5) L 07/20/18 21:55 Albumin/Globulin Ratio 1.8 (1.1-2.2) 07/20/18 21:55 25-OH Vitamin D Total 52 ng/mL (30-80) 07/21/18 12:08 Anesthesia Exam Vital Signs/O2 Sat, Most Current Temp Pulse Resp BP Pulse Ox 98.5 F 76 18 120/80 97 07/21/18 16:46 07/21/18 16:46 07/21/18 16:46 07/21/18 16:46 07/21/18 16:46 HEIGHT 1.68 m WEIGHT 89 kg BMI 32 NPO (# of Hours): 8 - HEENT Mallampati: I Teeth: Normal Oral Opening: Greater than 3 - [employer] LOC: Oriented (AAO3) - Cardiac Rhythm: Regular - Pulmonary Breath Sounds: bilateral Clear Respiratory Effort: Symmetrical - Additional Findings Active Medications Amitriptyline HCl (Elavil) 10 mg PO HS KYLE Stop: 01/19/19 21:31 Last Admin: 07/21/18 00:13 Dose: 10 mg Bupropion HCl (Wellbutrin Xl) 300 mg PO DAILY [facility] Stop: 01/20/19 09:01 Last Admin: 07/21/18 09:22 Dose: 300 mg Fluoxetine HCl (Prozac) 60 mg PO DAILY [facility] Stop: 01/20/19 09:01 Last Admin: 07/21/18 09:22 Dose: 60 mg Heparin Sodium (Porcine) (Heparin) 5,000 unit SQ Q8HCO [facility] Stop: 01/19/19 22:01 Last Admin: 07/21/18 15:22 Dose: Not Given Ketorolac Tromethamine (Toradol) 30 mg IVP Q6HR [facility] Stop: 07/26/18 00:03 Last Admin: 07/21/18 18:23 Dose: 30 mg Lisinopril (Zestril) 5 mg PO DAILY [facility] PRN Reason: Protocol Stop: 01/20/19 09:01 Last Admin: 07/21/18 09:21 Dose: 5 mg Omeprazole (Prilosec) 20 mg PO DAILY [facility] Stop: 01/20/19 09:01 Last Admin: 07/21/18 09:22 Dose: 20 mg Quetiapine Fumarate (Seroquel) 200 mg PO HS [facility] Stop: 01/20/19 21:23 Tramadol HCl (Ultram) 50 mg PO Q4HR PRN PRN Reason: Breakthrough Pain Stop: 01/20/19 12:01 Last Admin: 07/21/18 09:22 Dose: 50 mg Anesthesia Assess/Plan ASA Score: 3 Anesthetic Plan: Regional (SAB FOR PRIMARY ANESTHESIA) Monitoring Plan: Standard Monitors Recovery Plan: PACU
[2018-07-21] MEDS ORDERED: *HR* HYDROmorphone 2 MG/ML SYRINGE ONE (21:05)
[2018-07-21] MEDS ORDERED: *HR* HYDROmorphone 2 MG TABLET ONE (21:05)
[2018-07-21] MEDS ORDERED: Morphine Sulfate/PF 5mg/10mL Vial ONE (21:09)
[2018-07-21] MEDS ORDERED: *HR* Midazolam HCl 2 MG/2 ML VIAL ONE (21:20)
[2018-07-21] MEDS ORDERED: *HR* FentaNYL (PF) 100 MCG/2 ML VIAL ONE (21:20)
[2018-07-21] MEDS ORDERED: Propofol 500 MG/50 ML INFUS..BTL ONE ×2 (21:23→22:06)
[2018-07-21] MEDS ORDERED: *HR* PHENYLEPHRINE 1,000 MCG/10 ML SYRINGE IVP ONE (22:05)
[2018-07-21] MEDS ORDERED: Acetaminophen IV 1,000 MG/100 ML INFUS..BTL ONE (22:16)
[2018-07-21] MEDS ORDERED: Ondansetron 4 MG/2 ML VIAL IVP ONE (23:06)
[2018-07-21] MEDS ORDERED: *HR* Promethazine 25 MG/ML VIAL IVP PRN (23:06)
--- NOTE | 2018-07-21 23:07 | Anesthesia Evaluation Post Op ---
Date of Encounter: 07/21/18 Time of Encounter: 23:35 - Discharge PostOp Status: Transfer Patient to floor (Patient's vital signs have been reviewed. Patient is stable postoperatively and has adequately recovered from anesthesia. Patient is determined to have stable airway patency and respiratory function including respiratory rate and oxygen saturation. Patient has a stable heart rate, blood pressure and adequate hydration. Patients mental status is acceptable. Patients temperature is appropriate. Pain and nausea are adequately controlled.)
--- NOTE | 2018-07-21 23:17 | Operative Note ---
Date of procedure: 07/21/18 Pre-op diagnosis: Right femoral neck fracture Post-op diagnosis: same Procedure: 1. Percutaneous screw fixation right hip 2. Fluoroscopic guidance for percutaneous screw fixation right hip Implants: 3 Sandro 6.8 mm x 20 mm thread length cannulated screws Complications: None Anesthesia: spinal Surgeon: Dm Hung Was there an insurance administrative assistant present: No Estimated blood loss (cc): 8 Specimen: None Condition: stable Disposition: PACU Procedure in Detail: Gross findings: Preoperative x-rays and CT scan from [facility] revealed a minimally displaced right femoral neck fracture in this 57-year-old woman. There was minor valgus and rotational deformity. This was corrected with fluoroscopic guidance with the reduction obtained within minimal amount of traction, adduction and some internal rotation. The fracture was then stabilized with 3 cannulated hip screws placed with fluoroscopic guidance and noted to be well contained within the femoral head. Procedure: Patient was taken to the operating room and had a subarachnoid block administered by anesthesia. Once adequate level of anesthesia had been obtained the patient transferred to the fracture table. Right lower extremity was placed in longitudinal traction and left lower extremity was positioned out of harm's way and well leg edwards. All pressure points were well-padded. Fluoroscopy was now introduced and utilized to guide the reduction utilizing a combination of minimal traction, adduction and internal rotation until an anatomic reduction was verified with multiplane are fluoroscopy. Normal standard fashion for surgery. A right lateral hip incision was created. Dissection was carried to the rather abundant adipose tissue down the level of the fascia jamison which was split. Dissection was carried bluntly directly down to the lateral femoral cortex. At this time with fluoroscopic guidance 3 pins were placed into the femoral head. Inferior most screw was placed just above the inferior neck. The slightly more proximal screws were placed and all in noted to be well contained within the femoral head with multiplane are fluoroscopy. Screw lengths were measured and then appropriate sized cannulated screws were placed over the pins and driven into the subchondral bone with excellent purchase. The inferior most screw was tightened first securing the fracture line. This is followed by tightening the 2 more proximal screws. Fluoroscopy was used to verify that the fracture remained well reduced and implants were in excellent position. This is followed by removal of the guide pins. Wound was now irrigated and then closed with #1 Vicryl in the fascia and #1 Vicryl in the deep subcutaneous tissue followed by several inverted interrupted 2-0 undyed Vicryl immediate septated his tissue and then skin approximation with a running subcuticular stitch of 3- 0 strata fix. Pernio skin glue was now applied. Operative waffle foam Bioclusive dressing was now applied and secured. Patient was now transferred from the fracture table hospital bed and then transported to the postanesthesia care unit in stable and satisfactory condition. All sponge needle and instrument counts are correct. No specimens are sent for pathology.
[2018-07-21] MEDS ORDERED: Ondansetron ODT 4 MG TAB.RAPDIS SL PRN (23:55)
[2018-07-21] MEDS ORDERED: hydrOXYzine pamoate 25 MG CAPSULE PO PRN (23:55)
[2018-07-21] MEDS ORDERED: Naloxone 0.4 MG/ML INJ IVP PRN (23:55)
[2018-07-22] MEDS: Ketorolac 30 MG/ML VIAL IVP SCH ×4 (00:28→17:38)
[2018-07-22 01:39] LABS: Alanine Aminotransferase 14 Units/L (7-52); Albumin 3.6 g/dL (3.5-5.7); Albumin/Globulin Ratio 1.7 (1.1-2.2); Alkaline Phosphatase 71 Units/L (34-104); Aspartate Amino Transferase 14 Units/L (13-39); BUN/Creatinine Ratio 22 (6-26); Bilirubin,Total 0.3 mg/dL (0.3-1.0); Blood Urea Nitrogen 19 mg/dL (6-20); Calcium 10.1 mg/dL (8.6-10.3); Carbon Dioxide 26 mEq/L (23-29); Chloride 106 mEq/L (98-107); Globulin 2.1 g/dL (2.4-3.5); Glucose 131 mg/dL (70-105); Osmolality,Calculated 290 (280-300); Potassium 4.2 mEq/L (3.5-5.1); Sodium 138 mEq/L (136-145); Total Protein 5.7 g/dL (6.4-8.9); eGFR For Non-African Americans > 60 (> 60)
[2018-07-22 01:59] LABS: Basophils % 0.2 %; Eosinophils # 0.4 K/mcL (0.0-0.6); Eosinophils % 3.1 %; Hematocrit 37.7 % (35.3-44.9); Hemoglobin 12.2 g/dL (11.5-15.4); Immature Granulocytes % 0.8 % (0-4); Immature Platelets 1.5 % (1.1-6.1); Lymphocytes # 1.7 K/mcL (0.6-4.6); Lymphocytes % 13.7 %; Mean Corpuscular HGB Conc 32.4 g/dL (31.6-35.5); Mean Corpuscular Hemoglobin 30.7 pg (28.0-33.3); Mean Platelet Volume 8.5 fL (9.4-12.4); Monocytes # 1.3 K/mcL (0.0-1.3); Monocytes % 10.2 %; Neutrophils # 9.1 K/mcL (1.6-8.9); Platelet Count 314 K/mcL (140-400); Red Blood Count 3.97 M/mcL (3.82-4.97); Red Cell Distribution Width 13.2 % (11.5-14.5)
[2018-07-22] MEDS: *HR* Heparin 5,000 UNIT/ML VIAL SQ SCH ×3 (05:13→20:06)
--- NOTE | 2018-07-22 09:38 | Internal Med Progress Note ---
<Yasir Beltran S - Last Filed: 07/22/18 11:47> Hospitalist Progress Note - Encounter Date of Encounter: 07/22/18 Time of Encounter: 09:35 - Subjective Interval History: Ms. Linton is a 57 yo female with PMH anxiety, depression, EtOH abuse, mixed connective tissue dz, psoriasis, and osteoarthritis. She presented to the ER after falling on her right hip, she was transferred to [place] from [facility]. She had a fall earlier in the day yesterday after tripping over her dog and falling onto her hip and right elbow. She denies any head trauma, LOC. She had sharp pain in the right hip whenever she moved. In the ER had a CT of the right LE which showed subcapital femur fracture with mild anterior displacement and mild comminuted. -denies any B&B dysfxn, saddle anesthesia, or lower extremity numbness/tingling The pt was evaluated by orthopedic surgery and the pt decided to proceed with surgery, cannulated screw fixation. Today the pt has no acute complaints or concerns - Denies active chest pain, SOB, N/V/D - tolerated surgery well - Exam Vitals: Temp Pulse Resp BP Pulse Ox 98.2 F 75 16 122/84 99 07/22/18 07:37 07/22/18 07:37 07/22/18 07:37 07/22/18 07:37 07/22/18 07:37 Exam: general - aox3, minimal distress, cooperative cardio - rrr, s1s2, cta no mrg lungs - ctab, no wheeze rhonchi or rales, able to speak in full sentences without difficulty abd - ntnd, obese abdomen, no rebound or guarding skin - intact, no ulcers or open wounds extremities - no edema, strength 5/5 UE, did not test LE strength neuro - no FND - Assessment and Plan (1) Femur fracture, right Current Visit: Yes Status: Acute Assessment and Plan: Pt present s/p fall over dog -had c/o right hip pain -CT showed subcapital femur fracture with mild anterior displacement and mild comminuted PT 11.7 INR 1.0 25OH Vitamin D 52 POD#1 s/p percutaneous screw fixation right hip Plan: -ortho consulted, has sx yesterday - zofran prn nausea - regular diet - ultram q4hr and tourdol q6hr prn pain -cefazolin one time as per ortho d/c - naltrexone held - would benefit from outpatient DEXA scan, has multiple risk factors including tobacco and etOH abuse - 1,25 OH vitamin d level check -PTOT consulted - dispo: d/c tomorrow pending PTOT consult (2) Mixed connective tissue disease Current Visit: No Status: Chronic Assessment and Plan: Chronic, outpt mangement (3) Alcohol abuse Current Visit: No Status: Chronic Assessment and Plan: Sober 4mos -hx of chronic etOH abuse, drank a fifth of liquor per week -on natreoxine for etoh abuse, currently held for sx (4) Anxiety and depression Current Visit: No Status: Chronic Assessment and Plan: Continue Elvail, wellbutrin, prozac, seroquel (5) DVT prophylaxis Current Visit: Yes Status: Acute Assessment and Plan: sq heparin (6) Tobacco abuse Current Visit: No Status: Chronic Assessment and Plan: 1pack per month -NRT if pt needs -counseling provided (7) Obesity (BMI 30-39.9) Current Visit: No Status: Chronic Assessment and Plan: BMI 32.4 -lifestyle change (8) IRVING (obstructive sleep apnea) Current Visit: No Status: Chronic Assessment and Plan: Noncompliant - will benefit from outpt sleep study - overnight pulse ox as per night team (9) Hypertension Current Visit: No Status: Chronic Assessment and Plan: BP 117/77 -well controlled -continue lisinopril (10) GERD (gastroesophageal reflux disease) Current Visit: No Status: Chronic Assessment and Plan: On prilosec -continue home meds (11) Leukocytosis Current Visit: Yes Status: Acute Assessment and Plan: Most likely reactive 2/2 sx yesterday -white count is 12.7 -will check cbc in the AM DVT Prophylaxis: heparin sq - Time Spent with Patient Total time spent is greater than 50% in coordination of care (as documented) at patient's floor/unit and/or counseling patient: less than 15 minutes Plan of Care Discussed with: patient Internal Medicine: Result - Labs CBC & Chem 7: 07/22/18 00:51 07/22/18 00:51 Labs: Short CBC 07/22/18 Range/Units 00:51 WBC 12.7 H D (4.3-11.1) K/mcL Hgb 12.2 (11.5-15.4) g/dL Hct 37.7 (35.3-44.9) % Plt Count 314 (140-400) K/mcL Neutrophils # 9.1 H (1.6-8.9) K/mcL BMP 07/22/18 00:51 Sodium 138 Potassium 4.2 Chloride 106 Carbon Dioxide 26 BUN 19 Creatinine 0.87 Glucose 131 H Calcium 10.1 Liver Function 07/22/18 Range/Units 00:51 Total Bilirubin 0.3 (0.3-1.0) mg/dL AST 14 (13-39) Units/L ALT 14 (7-52) Units/L Alkaline Phosphatase 71 (34-104) Units/L Albumin 3.6 (3.5-5.7) g/dL - ABG Interpretation ABG results: PT/INR, D-dimer PT 11.7 Seconds (9.4-12.1) 07/20/18 21:55 - Impressions Impressions Fluoroscopy 07/21/18 21:50 IMPRESSION: Screw fixation right femoral neck fracture achieving near-anatomic alignment. Correlate with surgeons procedural report. D/ / Enrike Fleming / Enrike Fleming Interpreting Provider: Enrike Fleming Hip X-Ray 07/21/18 21:50 IMPRESSION: Screw fixation right femoral neck fracture achieving near-anatomic alignment. Correlate with surgeons procedural report. D/ / Enrike Fleming / Enrike Fleming Interpreting Provider: Enrike Fleming Consult Discharge Plan - Plan Referrals: NONE,PCP [Primary Care Provider] - <Luna Bryan - Last Filed: 07/22/18 16:15> Hospitalist Progress Note - Encounter Date of Encounter: 07/22/18 - Exam Vitals: Temp Pulse Resp BP Pulse Ox 98.7 F 80 16 119/76 95 07/22/18 14:45 07/22/18 14:45 07/22/18 14:45 07/22/18 14:45 07/22/18 14:45 - Assessment and Plan (1) Anxiety and depression Current Visit: No Status: Chronic (2) DVT prophylaxis Current Visit: Yes Status: Acute (3) Tobacco abuse Current Visit: No Status: Chronic (4) Obesity (BMI 30-39.9) Current Visit: No Status: Chronic (5) Femur fracture, right Current Visit: Yes Status: Acute (6) IRVING (obstructive sleep apnea) Current Visit: No Status: Chronic (7) Hypertension Current Visit: No Status: Chronic (8) Mixed connective tissue disease Current Visit: No Status: Chronic (9) Alcohol abuse Current Visit: No Status: Chronic (10) GERD (gastroesophageal reflux disease) Current Visit: No Status: Chronic (11) Leukocytosis Current Visit: Yes Status: Acute - Time Spent with Patient Total time spent is greater than 50% in coordination of care (as documented) at patient's floor/unit and/or counseling patient: Internal Medicine: Result - Labs CBC & Chem 7: 07/22/18 00:51 07/22/18 00:51 Labs: Short CBC 07/22/18 Range/Units 00:51 WBC 12.7 H D (4.3-11.1) K/mcL Hgb 12.2 (11.5-15.4) g/dL Hct 37.7 (35.3-44.9) % Plt Count 314 (140-400) K/mcL Neutrophils # 9.1 H (1.6-8.9) K/mcL BMP 07/22/18 00:51 Sodium 138 Potassium 4.2 Chloride 106 Carbon Dioxide 26 BUN 19 Creatinine 0.87 Glucose 131 H Calcium 10.1 Liver Function 07/22/18 Range/Units 00:51 Total Bilirubin 0.3 (0.3-1.0) mg/dL AST 14 (13-39) Units/L ALT 14 (7-52) Units/L Alkaline Phosphatase 71 (34-104) Units/L Albumin 3.6 (3.5-5.7) g/dL - ABG Interpretation ABG results: PT/INR, D-dimer PT 11.7 Seconds (9.4-12.1) 07/20/18 21:55 - Impressions Impressions Fluoroscopy 07/21/18 21:50 IMPRESSION: Screw fixation right femoral neck fracture achieving near-anatomic alignment. Correlate with surgeons procedural report. D/ / Enrike Fleming / Enrike Fleming Interpreting Provider: Enrike Fleming Hip X-Ray 07/21/18 21:50 IMPRESSION: Screw fixation right femoral neck fracture achieving near-anatomic alignment. Correlate with surgeons procedural report. D/ / Enrike Fleming / Enrike Fleming Interpreting Provider: Enrike Fleming - Attending Attestation I examined this patient and my medical decision-making was reviewed with the Resident Physician Dr. Beltran. I agree with the documented findings, disposition and treatment plan as described except to the extent set forth below. Ms. Linton is a 57 year old female hx mixed connective tissue disease and osteoarthritis presented to [facility] ED after fall for right hip pain. CT right lower extremity showed subcapital femur fracture with mild anterior displacement and mild comminuted. Patient was admitted in our hospital for further care. Patient states are pain is well controlled with current medication. Gen: A, A, O x 3 Chest: Diminished BS b/l, No rales Heart: S1S2+ RRR Ext: Moderate tenderness Rt hip a/p 1. Acute Rt Femur fx s/p Percutaneous screw fixation right hip - POD # 1 Post op doing well appreciate Ortho recommendations Will switch to Lovenox SQ for DVT prophylaxis <Yasir Beltran S - Last Filed: 07/22/18 11:47> (1) Femur fracture, right Qualifiers: Encounter type: initial encounter Femur location: unspecified portion of femur Fracture type: closed Fracture morphology: unspecified fracture morphology Qualified Code(s): S72.91XA - Unspecified fracture of right femur, initial encounter for closed fracture (9) Hypertension Qualifiers: Hypertension type: essential hypertension Qualified Code(s): I10 - Essential (primary) hypertension (10) GERD (gastroesophageal reflux disease) Qualifiers: Esophagitis presence: without esophagitis Qualified Code(s): K21.9 - Gastro- esophageal reflux disease without esophagitis (11) Leukocytosis Qualifiers: Leukocytosis type: unspecified Qualified Code(s): D72.829 - Elevated white blood cell count, unspecified <Luna Bryan - Last Filed: 07/22/18 16:15> (5) Femur fracture, right Qualifiers: Encounter type: initial encounter Femur location: unspecified portion of femur Fracture type: closed Fracture morphology: unspecified fracture morphology Qualified Code(s): S72.91XA - Unspecified fracture of right femur, initial encounter for closed fracture (7) Hypertension Qualifiers: Hypertension type: essential hypertension Qualified Code(s): I10 - Essential (primary) hypertension (10) GERD (gastroesophageal reflux disease) Qualifiers: Esophagitis presence: without esophagitis Qualified Code(s): K21.9 - Gastro- esophageal reflux disease without esophagitis (11) Leukocytosis Qualifiers: Leukocytosis type: unspecified Qualified Code(s): D72.829 - Elevated white blood cell count, unspecified
[2018-07-22] MEDS: FLUoxetine 20 MG CAPSULE PO SCH (09:40)
[2018-07-22] MEDS: traMADol 50 MG TABLET PO PRN ×3 (09:40→20:05)
[2018-07-22] MEDS: BuPROPion XL (24 HR) 150 MG TABLET PO SCH (09:40)
--- NOTE | 2018-07-22 20:06 | Orthopedics Progress Note ---
Date of Encounter: 07/22/18 Time of Encounter: 20:04 Subjective Principal diagnosis: Right femoral neck fracture Interval history: 07/22/2018. Patient is postop day #1 percutaneous screw fixation of right hip. Patient is having minimal pain. Vital signs stable. Patient is afebrile. Dressing is clean and dry. Neurovascular exam is normal. Hemoglobin is stable. Impression: POD #1 percutaneous screw fixation right hip Recommendation: Patient is stable from an orthopedics point review for discharge at any time. Discussed with the patient that she can be weightbearing as tolerated right 1 her to make sure that she always uses a walker whenever she is ambulating. If her Bioclusive dressing is intact she can shower, no bathing or soaking. She will need to see me back in follow-up in about 3 weeks' time. Could utilize Ecotrin 325 mg twice a day for DVT prophylaxis. Pain management per internal medicine. Objective Vital signs: Vital Signs Temp Pulse Resp BP Pulse Ox 07/22/18 19:17 98.8 F 89 16 155/97 96 07/22/18 16:44 98.7 F 84 16 127/80 96 07/22/18 14:45 98.7 F 80 16 119/76 95 07/22/18 12:25 98.3 F 76 16 129/86 96 07/22/18 07:37 98.2 F 75 16 122/84 99 07/22/18 04:07 97.9 F 74 16 117/77 96 07/22/18 02:50 97.8 F 75 16 135/80 98 07/22/18 01:50 97.7 F 74 17 135/82 98 07/22/18 00:50 97.6 F 76 17 137/84 98 07/22/18 00:20 97.5 F L 71 17 139/87 97 07/21/18 23:50 97.6 F 67 14 131/89 97 07/21/18 23:35 98.2 F 63 14 143/86 97 07/21/18 23:25 98.2 F 63 14 122/82 97 07/21/18 23:15 65 16 126/95 100 07/21/18 23:05 66 16 118/73 97 07/21/18 22:55 98.1 F 73 16 110/71 94 07/21/18 20:54 97 Intake and Output 07/22/18 07/22/18 07/22/18 07:59 15:59 23:59 Intake Total 100 / 100 Output Total 590 / 590 Balance -490 / -490 Intake: IV Fluids 100 / 100 Ancef 2,000 MG In 0.9 % Sodium 100 / 100 Chloride 100 ML @ 200 mls/hr IVPB Q8H KYLE Rx#:[id number] Output: Catheter 590 / 590 Other: # Voids 1 Weight 91.1 kg Patient Weight 07/22/18 23:59 Weight 91.1 kg - Labs CBC & BMP: 07/22/18 00:51 07/22/18 00:51 Labs: Abnormal lab results WBC 12.7 K/mcL (4.3-11.1) H D 07/22/18 00:51 MPV 8.5 fL (9.4-12.4) L 07/22/18 00:51 Neutrophils # 9.1 K/mcL (1.6-8.9) H 07/22/18 00:51 Glucose 131 mg/dL (70-105) H 07/22/18 00:51 Serum Total Protein 5.7 g/dL (6.4-8.9) L 07/22/18 00:51 Globulin 2.1 g/dL (2.4-3.5) L 07/22/18 00:51 Consult Discharge Plan - Plan Referrals: NONE,PCP [Primary Care Provider] -
[2018-07-22] MEDS: Acetaminophen 325 MG TABLET PO PRN (22:26)
[2018-07-23] MEDS: Ketorolac 30 MG/ML VIAL IVP SCH ×4 (00:18→12:14)
[2018-07-23 01:36] LABS: Basophils % 0.4 %; Eosinophils # 0.5 K/mcL (0.0-0.6); Eosinophils % 4.3 %; Hematocrit 35.7 % (35.3-44.9); Immature Granulocytes % 0.4 % (0-4); Lymphocytes # 1.9 K/mcL (0.6-4.6); Lymphocytes % 17.6 %; Mean Corpuscular HGB Conc 33.6 g/dL (31.6-35.5); Mean Corpuscular Hemoglobin 31.4 pg (28.0-33.3); Mean Corpuscular Volume 93.5 fL (83.0-100.0); Mean Platelet Volume 8.5 fL (9.4-12.4); Monocytes % 9.6 %; Neutrophils # 7.3 K/mcL (1.6-8.9); Platelet Count 273 K/mcL (140-400); Red Blood Count 3.82 M/mcL (3.82-4.97); Red Cell Distribution Width 13.1 % (11.5-14.5); Segmented Neutrophils % 67.7 %
[2018-07-23] MEDS: traMADol 50 MG TABLET PO PRN ×3 (04:42→16:21)
[2018-07-23] MEDS: *HR* Heparin 5,000 UNIT/ML VIAL SQ SCH ×2 (05:43→16:21)
[2018-07-23] MEDS: Acetaminophen 325 MG TABLET PO PRN (05:47)
[2018-07-23 06:55] LABS: Alanine Aminotransferase 10 Units/L (7-52); Albumin 3.4 g/dL (3.5-5.7); Albumin/Globulin Ratio 1.5 (1.1-2.2); Alkaline Phosphatase 67 Units/L (34-104); Aspartate Amino Transferase 12 Units/L (13-39); BUN/Creatinine Ratio 23 (6-26); Bilirubin,Total 0.3 mg/dL (0.3-1.0); Blood Urea Nitrogen 17 mg/dL (6-20); Carbon Dioxide 25 mEq/L (23-29); Chloride 107 mEq/L (98-107); Globulin 2.2 g/dL (2.4-3.5); Glucose 111 mg/dL (70-105); Osmolality,Calculated 286 (280-300); Potassium 4.1 mEq/L (3.5-5.1); Sodium 137 mEq/L (136-145); Total Protein 5.6 g/dL (6.4-8.9); eGFR For Non-African Americans > 60 (> 60)
[2018-07-23] MEDS: BuPROPion XL (24 HR) 150 MG TABLET PO SCH (09:13)
[2018-07-23] MEDS: FLUoxetine 20 MG CAPSULE PO SCH (09:14)
--- NOTE | 2018-07-23 09:26 | Discharge Summary ---
<Yasir Beltran S - Last Filed: 07/23/18 11:17> - NOTES TO OUTPATIENT PROVIDER Notes to Outpatient Provider: Follow up on restarting natrexone. Follow up on pain control. Would benefit from outpatient DEXA scan. Orders not resulted at time of discharge: Pending orders 07/21/18 12:08 Vitamin D 1,25 Dihydroxy Routine Date of Encounter: 07/23/18 Time of Encounter: 09:18 - Discharge Diagnosis (1) Femur fracture, right Priority: Primary Status: Acute Qualifiers: Encounter type: initial encounter Femur location: unspecified portion of femur Fracture type: closed Fracture morphology: unspecified fracture morphology Qualified Code(s): S72.91XA - Unspecified fracture of right femur, initial encounter for closed fracture (2) Mixed connective tissue disease Priority: Secondary Status: Chronic (3) Alcohol abuse Priority: Secondary Status: Chronic (4) Anxiety and depression Priority: Secondary Status: Chronic (5) DVT prophylaxis Priority: Secondary Status: Acute (6) Tobacco abuse Priority: Secondary Status: Chronic (7) Obesity (BMI 30-39.9) Priority: Secondary Status: Chronic (8) IRVING (obstructive sleep apnea) Priority: Secondary Status: Chronic (9) Hypertension Priority: Secondary Status: Chronic Qualifiers: Hypertension type: essential hypertension Qualified Code(s): I10 - Essential (primary) hypertension (10) GERD (gastroesophageal reflux disease) Priority: Secondary Status: Chronic Qualifiers: Esophagitis presence: without esophagitis Qualified Code(s): K21.9 - Gastro -esophageal reflux disease without esophagitis (11) Leukocytosis Priority: Secondary Status: Resolved Qualifiers: Leukocytosis type: unspecified Qualified Code(s): D72.829 - Elevated white blood cell count, unspecified Hospital course: Ms. Linton is a 57 yo female with PMH anxiety, depression, EtOH abuse, mixed connective tissue dz, psoriasis, and osteoarthritis. She presented to the ER after falling on her right hip, she was transferred to [place] from [facility]. She had a fall earlier in the day yesterday after tripping over her dog and falling onto her hip and right elbow. She denies any head trauma, LOC. She had sharp pain in the right hip whenever she moved. In the ER had a CT of the right LE which showed subcapital femur fracture with mild anterior displacement and mild comminuted. -denies any B&B dysfxn, saddle anesthesia, or lower extremity numbness/tingling The pt was evaluated by orthopedic surgery and the pt decided to proceed with surgery, cannulated screw fixation. - the pt tolerated the procedure well Today the pt is stable for discharge, has minimal pain - will d/c the patient on 3 days worth of Percocet , told pt not to restart Naltrexone until done taking pain meds - Lovenox 40mg SQ daily x 18 days - writing a prescription for a walker - PTOT recommendation for home therapy - would benefit from outpt DEXA scan, pt has multiple risk factors for osteopenia/osteoporosis including EtOH abuse and tobacco abuse Discharge discussed with: patient - Time Spent with Patient Total time spent providing and/or coordinating discharge services: Less than 30 minutes - Discharge Medications Prescriptions: Enoxaparin [Lovenox] 40 mg SQ DAILY 18 Days #18 syr Oxycodone HCl/Acetaminophen [Percocet 10-325 mg Tablet] 1 each PO Q8H 3 Days #9 tablet Walker W Wheels [WHEELED WALKER] 1 each .ROUTE AD #1 each Home Medications: Lisinopril [Zestril] 5 mg PO DAILY 02/09/18 [History] Naltrexone HCl 25 mg PO DAILY 02/09/18 [History] Pantoprazole Sodium [Protonix] 40 mg PO DAILY 02/09/18 [History] hydrOXYzine pamoate [HydrOXYzine Pamoate] 25 - 50 mg PO BID PRN 02/09/18 [ History] Acetaminophen [Extra Strength Non-Aspirin] 500 mg PO Q6HR PRN 07/20/18 [History] Bupropion HCl [Wellbutrin Xl] 300 mg PO QAM 07/21/18 [History] FLUoxetine HCl [Prozac] 60 mg PO HS 07/21/18 [History] Mirtazapine [Remeron] 15 mg PO HS 07/21/18 [History] Quetiapine Fumarate [Seroquel Xr] 200 mg PO HS 07/21/18 [History] Enoxaparin [Lovenox] 40 mg SQ DAILY 18 Days #18 syr 07/23/18 [Rx] Oxycodone HCl/Acetaminophen [Percocet 10-325 mg Tablet] 1 each PO Q8H 3 Days #9 tablet 07/23/18 [Rx] Walker [employer] Wheels [WHEELED WALKER] 1 each .ROUTE AD #1 each 07/23/18 [Rx] Allergies/Adverse Reactions: 3 Allergy/AdvReac Type Severity Reaction Status Date / Time pregabalin [From Lyrica] AdvReac Swelling Verified 07/21/18 07:11 of Lip/Tongue/Throat Date of admission: 07/21/18 23:03 Primary care physician: PCP NONE Consults: 07/21/18 23:55 Consult to Occupational Therapy [CONS] Routine Comment: Evaluate, develop and implement POC Reason for Consult: adl Does patient have active BEDREST order?: No Is patient medically & hemodynamically stable?: Yes Consult to Physical Therapy [CONS] Routine Comment: Evaluate, develop and implement POC Reason for Consult: wbat Does patient have active BEDREST order?: No Is patient medically & hemodynamically stable?: Yes Consult to Systems Analyst Developer [CONS] Routine Reason for SW Consult: dc Discharging clinician: Yasir Beltran Anticipated date of discharge: 07/23/18 - Constitutional Vitals: Temp Pulse Resp BP Pulse Ox 98.2 F 126 18 101/68 94 07/23/18 06:33 07/23/18 06:33 07/23/18 06:33 07/23/18 06:33 07/23/18 06:33 General appearance: Present: cooperative, mild distress, A&O X 3, obese, answers questions appropriately Exam: general - aox3, minimal distress, cooperative cardio - rrr, s1s2, cta no mrg lungs - ctab, no wheeze rhonchi or rales, able to speak in full sentences without difficulty abd - ntnd, obese abdomen, no rebound or guarding skin - intact, no ulcers or open wounds extremities - no edema, strength 5/5 UE, did not test LE strength neuro - no FND - Patient Status Disposition: Home Health Service Functional capacity at discharge: uses cane/walker Overall status at discharge: patient is progressing back to baseline - Discharge Instructions Instructions: Oxycodone/Acetaminophen (By mouth), Enoxaparin (Injection), Leg Fracture (DC), Open Reduction Internal Fixation (DC) Follow Up With: Dm Hung DO [Non-Partnered Physician] - 08/13/18 1:10 pm () Kelin Boudreaux MD [Partnered Physician] - 07/30/18 - Diet and Activity Activity: as per physical therapy, increase activity as tolerated Diet: advance to your usual diet <Luna Bryan - Last Filed: 07/23/18 17:08> Orders not resulted at time of discharge: Pending orders 07/21/18 12:08 Vitamin D 1,25 Dihydroxy Routine Date of Encounter: 07/23/18 - Discharge Diagnosis (1) Anxiety and depression Status: Chronic (2) DVT prophylaxis Status: Acute (3) Tobacco abuse Status: Chronic (4) Obesity (BMI 30-39.9) Status: Chronic (5) Femur fracture, right Status: Acute Qualifiers: Encounter type: initial encounter Femur location: unspecified portion of femur Fracture type: closed Fracture morphology: unspecified fracture morphology Qualified Code(s): S72.91XA - Unspecified fracture of right femur, initial encounter for closed fracture (6) IRVING (obstructive sleep apnea) Status: Chronic (7) Hypertension Status: Chronic Qualifiers: Hypertension type: essential hypertension Qualified Code(s): I10 - Essential (primary) hypertension (8) Mixed connective tissue disease Status: Chronic (9) Alcohol abuse Status: Chronic (10) GERD (gastroesophageal reflux disease) Status: Chronic Qualifiers: Esophagitis presence: without esophagitis Qualified Code(s): K21.9 - Gastro -esophageal reflux disease without esophagitis (11) Leukocytosis Status: Resolved Qualifiers: Leukocytosis type: unspecified Qualified Code(s): D72.829 - Elevated white blood cell count, unspecified Hospital course: Ms. Linton is a 57 year old female - Time Spent with Patient Total time spent providing and/or coordinating discharge services: Date of admission: 07/21/18 23:03 Primary care physician: PCP NONE Consults: 07/21/18 23:55 Consult to Occupational Therapy [CONS] Routine Comment: Evaluate, develop and implement POC Reason for Consult: adl Does patient have active BEDREST order?: No Is patient medically & hemodynamically stable?: Yes Consult to Physical Therapy [CONS] Routine Comment: Evaluate, develop and implement POC Reason for Consult: wbat Does patient have active BEDREST order?: No Is patient medically & hemodynamically stable?: Yes Consult to Systems Analyst Developer [CONS] Routine Reason for SW Consult: dc - Constitutional Vitals: Temp Pulse Resp BP Pulse Ox 98.3 F 76 18 122/83 98 07/23/18 14:30 07/23/18 14:30 07/23/18 14:30 07/23/18 14:30 07/23/18 14:30 - Attending Attestation I examined this patient and my medical decision-making was reviewed with the Resident Physician Dr. Beltran. I agree with the documented findings, disposition and treatment plan as described except to the extent set forth below. Ms. Linton is a 57 year old female hx mixed connective tissue disease and osteoarthritis presented to [facility] ED after fall for right hip pain. CT right lower extremity showed subcapital femur fracture with mild anterior displacement and mild comminuted. Patient was admitted in our hospital for further care. Patient states are pain is well controlled with current medication. Gen: A, A, O x 3 Chest: Diminished BS b/l, No rales Heart: S1S2+ RRR Ext: Moderate tenderness Rt hip a/p 1. Acute Rt Femur fx s/p Percutaneous screw fixation right hip - POD # 2 Post op doing well appreciate Ortho recommendations Medically stable to d/c home today home PT / OT Lovenox SQ for DVT prophylaxis
--- NOTE | 2018-07-23 09:34 | Physician Discharge Referral ---
Home Health/Hosp Referral Info Transfer to: Home Health Provider in Charge Post Discharge: PCP - Diagnosis (1) Femur fracture, right Priority: Primary Status: Acute (2) Leukocytosis Priority: Secondary Status: Resolved (3) Mixed connective tissue disease Priority: Secondary Status: Chronic (4) Alcohol abuse Priority: Secondary Status: Chronic (5) Anxiety and depression Priority: Secondary Status: Chronic (6) DVT prophylaxis Priority: Secondary Status: Acute (7) Tobacco abuse Priority: Secondary Status: Chronic (8) Obesity (BMI 30-39.9) Priority: Secondary Status: Chronic (9) IRVING (obstructive sleep apnea) Priority: Secondary Status: Chronic (10) Hypertension Priority: Secondary Status: Chronic (11) GERD (gastroesophageal reflux disease) Priority: Secondary Status: Chronic - Respiratory Orders Smoking Cessation: Smoking cessation has been advised. For more information, call the [place] Tobacco Quit Line at 0-494-DJQP-NOW. - Transfer Medications Prescriptions: Enoxaparin [Lovenox] 40 mg SQ DAILY 18 Days #18 syr Oxycodone HCl/Acetaminophen [Percocet 10-325 mg Tablet] 1 each PO Q8H 3 Days #9 tablet [employer] [WHEELED WALKER] 1 each .ROUTE AD #1 each Home Medications: Lisinopril [Zestril] 5 mg PO DAILY 02/09/18 [History] Naltrexone HCl 25 mg PO DAILY 02/09/18 [History] Pantoprazole Sodium [Protonix] 40 mg PO DAILY 02/09/18 [History] hydrOXYzine pamoate [HydrOXYzine Pamoate] 25 - 50 mg PO BID PRN 02/09/18 [ History] Acetaminophen [Extra Strength Non-Aspirin] 500 mg PO Q6HR PRN 07/20/18 [History] Bupropion HCl [Wellbutrin Xl] 300 mg PO QAM 07/21/18 [History] FLUoxetine HCl [Prozac] 60 mg PO HS 07/21/18 [History] Mirtazapine [Remeron] 15 mg PO HS 07/21/18 [History] Quetiapine Fumarate [Seroquel Xr] 200 mg PO HS 07/21/18 [History] Enoxaparin [Lovenox] 40 mg SQ DAILY 18 Days #18 syr 07/23/18 [Rx] Oxycodone HCl/Acetaminophen [Percocet 10-325 mg Tablet] 1 each PO Q8H 3 Days #9 tablet 07/23/18 [Rx] [employer] Whe[employer] [WHEELED WALKER] 1 each .ROUTE AD #1 each 07/23/18 [Rx] Allergies/Adverse Reactions: 3 Allergy/AdvReac Type Severity Reaction Status Date / Time pregabalin [From Lyrica] AdvReac Swelling Verified 07/21/18 07:11 of Lip/Tongue/Throat Certification: Further, I certify that my clinical findings support that this patient is homebound (i.e. absences from home require considerable and taxing effort and are for medical reasons or confucianism services or infrequently or short duration when for other reasons) because: Homebound Reason: Post-surgery restriction and or conditions limit ability to leave home Attestation: My signature below is to certify that this patient is under my care and that I, or nurse practitioner, or a physician's elder assistant working with me, has a face-to -face encounter with this patient.
[2018-07-23 14:31] VITALS: BP 122/83
--- NOTE | 2018-07-23 17:12 | Electrocardiograph Report ---
[place] [id number] Test Date: 2018-07-21 Pat Name: Iglesia Linton Department: 114 Room: [facility] Gender: F Final Expense Agent: : [id number] Requested By: Nuvia Rich Order Number: [id number] Reading MD: Faina Garcia Measurements Intervals [place] Rate: 82 P: 50 [place]: 185 QRS: 30 QRSD: 94 T: 58 QT: 394 QTc: 433 Interpretive Statements SINUS RHYTHM NONSPECIFIC ST & T-WAVE ABNORMALITY Electronically Signed On 07-23-2018 17:10:52 EDT by Faina Garcia
== END 2018-07-23 17:30 | disposition home health service (06) | DRG 481 ==
LOC: 3NENU
PROVIDERS: ADMIT Internal Medicine; ATTEND Internal Medicine